=== PATIENT | female | born 1940 | race Caucasian/White ===

== ENCOUNTER → 2021-05-08 12:00 | Outpatient (CLI) | payer MEDICARE, OTHER, SELFPAY ==
--- NOTE | ~2021-05-08 | MM_ITS ---
EXAMINATION: MM screening moo BI w jamar HISTORY: Screening mammogram TECHNIQUE: Craniocaudal and mediolateral oblique 3-D tomosynthesis images were obtained and synthetic 2-D images were generated. Bilateral rotated lateral CC views. CAD analysis was submitted and interp reted. COMPARISON: 05/08/2011 bilateral diagnostic mammogram 06/24/2009 bilateral digital screening mammogram BREAST PARENCHYMAL COMPOSITION: There are scattered areas of fibroglandular density. FINDINGS: There are scattered bilateral benign calcifications. There is no evidence of suspicious ma ss, calcification, or architectural distortion to suggest malignancy in either breast. There has been no suspicious interval change. IMPRESSION: 1. No mammographic evidence of malignancy. 2. Recommend routine screening mammography in one year. BI-RADS Category 2: Benign finding(s). Reviewed, dictated and finalized at location A.
--- NOTE | ~2021-05-08 | DEXA_ITS ---
Bone Density Report Name: Nanette Lee Age: 80 Sex: Female Ethnicity: White Date of : 1940 Indication: osteopenia; parental hip fracture; height loss; postmenopausal Referring Provider: Leonard Cummins Study: Bone densitometry was performed. Exam Date: May 08, 2021 Accession number: [id number] Bone Density: Region BMD T-score Z-score Classification AP Spine (L1-L4) 0.940 -1.0 1.7 Normal Femoral Neck (Left) 0.555 -2.6 -0.4 Osteoporosis Total Hip (Left) 0.706 -1.9 0.1 Osteopenia Femoral Neck (Right) 0.572 -2.5 -0.2 Osteoporosis Total Hip (Right) 0.704 -1.9 0.1 Osteopenia Total Hip Mean 0.705 -1.9 0.1 Osteopenia World Health Organization criteria for BMD impression classify patients as: Normal (T-score at or above -1.0), Osteopenia (T-score between -1.0 and -2.5), or Osteoporosis (T-score at or below -2.5). 10-year Fracture Risk: FRAX not reported because: Some T-score for Spine Total or Hip Total or Femoral Neck at or below -2.5 Previous Exams: Region Exam Age BMD T-score BMD Change BMD Change Date g/cm2 vs Baseline vs Previous AP Spine(L1-L4) 05/08/2021 80 0.940 -1.0 0.051* 0.051* 03/06/2005 64 0.889 -1.4 Total Hip(Left) 05/08/2021 80 0.706 -1.9 -0.084* -0.084* 03/06/2005 64 0.790 -1.2 Total Hip(Right) 05/08/2021 80 0.704 -1.9 -0.080* -0.080* 03/06/2005 64 0.785 -1.3 *Denotes significance at 95% confidence level, LSC for AP Spine = 0.022 g/cm2, LSC for Total Hip = 0.027 g/cm2 Clinical Information Provided by Patient: Parent has had a hip fracture Patient maximum height was 60.0 Menopause Age: 54 Drinks caffeinated beverages Onset of menses at age 14 Number of children 2 Impression: The patient has osteoporosis, based on the Left Femoral Neck T-score. The patient has risk factors, including: parental hip fracture. The BMD for the Total Hip(Left) decreased, changing by -0.084 since the last DXA exam. The BMD for the Total Hip(Right) decreased, changing by -0.080 since the last DXA exam. Discussion: INCREASED RISK OF FRACTURE. BONE DENSITY IS UNDESIRABLY LOW AT ONE OR MORE SKELETAL SITES, CONSISTENT WITH POSTMENOPAUSAL OSTEOPOROSIS. This patient's lowest T-score meets the World Health Organization's (WHO) criteria for osteoporosis at one or more sites (T-score -2.5 or below). In untreated patients, the risk of osteoporotic fracture increases approximately two-fold for each
== END ==
PROVIDERS: PCP Nurse Practitioner; Visit Provider Internal Medicine
DX: Z12.31 Encounter for screening mammogram for malignant neoplasm of breast (principal); Z78.0 Asymptomatic menopausal state; M81.0 Age-related osteoporosis without current pathological fracture; M85.852 Other specified disorders of bone density and structure, left thigh; M85.851 Other specified disorders of bone density and structure, right thigh
CPT/HCPCS: 77063; 77067; 77080

== ENCOUNTER 2023-02-09 12:17 | Emergency (ER) | payer MEDICARE, OTHER, SELFPAY ==
--- NOTE | ~2023-02-09 | XR_ITS ---
EXAMINATION: XR lumbar spine 2-3V DATE: 02/09/2023 13:02 INDICATION: Low back pain TECHNIQUE: Anteroposterior and lateral views of the lumbar spine, and cone-down lateral view of the l umbosacral junction were obtained. COMPARISON: None. FINDINGS: There are 2 mm of retrolisthesis of L5 on S1. The vertebral body heights are normal. There is moderate loss of intervertebral disc space height at L3-4 and L5-S1. Calcified atherosclerosis is noted. There is moderate to severe facet joint osteoarthritis. Small degenerative osteophytes project from the anterior endplates of multiple vertebral bodies. IMPRESSION: 1. Moderate lumbar spondylosis without acute findings. Reviewed, dictated and finalized at location A.
[2023-02-09 12:22] VITALS: BP 146/57; PULSE 63; RESP 18; TEMP 37; O2SAT 99
--- NOTE | 2023-02-09 13:29 | ED.GENADULT ---
HPI - General Adult General Chief complaint: Extremity Problem,Nontraumatic Stated complaint: right leg pain Time Seen by Provider: 02/09/23 12:37 History of Present Illness HPI narrative: 82-year-old female history of CAD, A-fib, osteoporosis and dyslipidemia presents to the emergency room for evaluation of lower back pain radiates into her right leg. States pain is worse when attempting to ambulate and reposition herself. States pain is improved when she hunches forward. Describes pain as a sharp radiating pain into her thigh and into her heel. Denies any injury or trauma. Denies any saddle anesthesia, or difficulties with bowel or bladder habits. Related Data Home Medications Medication Instructions Recorded Confirmed aspirin 81 mg tablet,delayed 81 mg PO DAILY 11/09/20 12/24/22 release (Adult Aspirin Regimen) rivaroxaban 20 mg tablet (Xarelto) 20 mg PO QPM 11/09/20 12/24/22 cholecalciferol (vitamin D3) 50 50 mcg PO DAILY 09/20/22 12/24/22 mcg (2,000 unit) capsule omega-3 fatty acids-fish oil 435 2 cap PO DAILY 09/20/22 12/24/22 mg-880 mg capsule sotalol 80 mg tablet 80 mg PO DAILY 12/24/22 12/24/22 Allergies Allergy/AdvReac Type Severity Reaction Status Date / Time lisinopril Allergy Severe ANGIOEDEMA Verified 02/09/23 12:24 Review of Systems Review of Systems: CONSTITUTIONAL: Denies fever, chills, or sweats. EYES: Denies visual changes, redness, or discharge. ENT: Denies rhinorrhea, congestion, sore throat, or otalgia. CARDIOVASCULAR: Denies chest pain, palpitations, or edema. RESPIRATORY: Denies cough or dyspnea. GASTROINTESTINAL: Denies abdominal pain, nausea, vomiting, or diarrhea. GENITOURINARY: Denies dysuria or hematuria. SKIN: Denies rash or itching. MUSCULOSKELETAL: Reports lower back pain NEUROLOGIC: Denies headache, numbness, dizziness, or weakness. PSYCHIATRIC: Denies anxiety or depression. [facility] Past Medical History Medical History Adult hypothyroidism Atrial fibrillation Coronary artery disease Dyslipidemia Essential (primary) hypertension Hyperlipidemia Mitral regurgitation Osteoporosis Surgical History Surgical History H/O heart artery stent Stented coronary artery Family History Family History Mother Hypertension Hyperlipidemia Father Heart disease Sibling Alzheimer disease Social History Social History Smoking status: Never smoker Second hand tobacco smoke exposure: No Alcohol intake: never Substance use: never Substance use type: does not use Lack of Transportation: No Lack of Food: Never True Current Housing: I Have Housing Concerned About Future Housing: No Difficulty Paying Gas/Electric Bills: No Difficulty Paying for Meds: No Currently Unemployed: No Education: Trade/Vocational Certificate Difficulty w/ Childcare or Family Care: No Exam Narrative: GENERAL: Well-appearing, well-nourished, no physical limitations, and in no acute distress. HEAD: Normocephalic, atraumatic. EYES: Conjunctivae normal, PERRLA and EOMI. CHEST: Clear to auscultation. No respiratory distress. No wheezes rales or rhonchi. HEART: Regular rate and rhythm. No murmur heard. Normal peripheral pulses. BACK: No midline lumbar tenderness, step-offs, bony abnormality; FROM EXTREMITIES: Normal range of motion. No edema. No clubbing or cyanosis. +SLE RLE SKIN: Warm, dry, no rash. No noted wounds NEURO: No focal deficits. Alert and oriented x3. MAEW. CN's II-XI intact bilaterally, antalgic gait PSYCH: Cooperative. Normal mood and affect. Course Vital Signs Vital signs: Vital Signs Temperature 37.0 C 02/09/23 12:22 Pulse Rate 63 02/09/23 12:22 Respiratory Rate 18 02/09/23 12:22 Blood Pressure
== END 2023-02-09 14:17 | disposition home or self-care (01) ==
PROVIDERS: Emergency Provider Nurse Practitioner Family; PCP Internal Medicine
DX: M54.50 Low back pain, unspecified (principal); M79.661 Pain in right lower leg; I25.10 Atherosclerotic heart disease of native coronary artery without angina pectoris; I48.91 Unspecified atrial fibrillation; E78.5 Hyperlipidemia, unspecified; I10 Essential (primary) hypertension
CPT/HCPCS: 72100; 99283

== ENCOUNTER 2023-08-09 01:15 | Day surgery (SDC) | payer MEDICARE, OTHER, SELFPAY ==
[2023-08-01 14:57] VITALS: BMI 24.6
[2023-08-09 10:14] VITALS: BP 144/44; PULSE 51; RESP 18; TEMP 36.4; O2SAT 98; BMI 24.1
[2023-08-09] MEDS: LACTATED RINGERS 1,000 ML 150 ML IV CONT (10:45)
--- NOTE | 2023-08-09 10:51 | PM.HPGS ---
History of Present Illness History of Present Illness Consent: Risks, benefits, and alternatives have been discussed and questions answered. Patient agrees to proceed with procedure. Chief complaint: occult blood in stool Narrative: Nanette Lee is a 82 year old female Presents for screening colonoscopy. Patient has never had prior colonoscopy. Had a Cologuard test several years ago that was negative. Recently found to have mild normochromic normocytic anemia. Stool Hemoccult was performed and found to be positive. Patient referred today for colonoscopy. Patient denies any obvious bleeding. She denies abdominal pain. She reports her bowel habits are normal. Review of Systems Review of Systems: Review of systems noncontributory. [facility] Past Medical History Medical History Adult hypothyroidism Atrial fibrillation Coronary artery disease Dyslipidemia Essential (primary) hypertension Hyperlipidemia Mitral regurgitation Osteoporosis Surgical History Surgical History H/O heart artery stent Stented coronary artery Family History Family History Mother Hypertension Hyperlipidemia Father Heart disease Sibling Alzheimer disease Social History Social History Smoking status: Never smoker Second hand tobacco smoke exposure: No Alcohol intake: current Substance use: never Substance use type: does not use Lack of Transportation: No Lack of Food: Never True Current Housing: I Have Housing Concerned About Future Housing: No Difficulty Paying Gas/Electric Bills: No Difficulty Paying for Meds: No Currently Unemployed: No Education: High School Diploma/GED Difficulty w/ Childcare or Family Care: No Living arrangements: with family Spiritual care concerns: No Meds Home Medications and Allergies Home Medications Medication Instructions Recorded Confirmed Type aspirin 81 mg tablet,delayed 81 mg PO DAILY 11/09/20 08/01/23 History release (Adult Aspirin Regimen) rivaroxaban 20 mg tablet (Xarelto) 20 mg PO QAM 11/09/20 08/01/23 History cholecalciferol (vitamin D3) 50 50 mcg PO DAILY 09/20/22 08/01/23 History mcg (2,000 unit) capsule omega-3 fatty acids-fish oil 435 1 cap PO BID 09/20/22 08/01/23 History mg-880 mg capsule sotalol 80 mg tablet 80 mg PO DAILY 12/24/22 08/01/23 History hydrochlorothiazide 25 mg tablet 25 mg PO DAILY #90 tabs 01/04/23 08/01/23 Rx sodium,potassium,mag sulfates 17.5 See Rx Instructions PO .COMPLEX 07/11/23 Rx gram-3.13 gram-1.6 gram oral soln #354 mL (Suprep Bowel Prep Kit) acetaminophen 500 mg capsule 1,000 mg PO DAILY 08/01/23 08/01/23 History esomeprazole magnesium 40 mg 40 mg PO DAILY 08/01/23 08/01/23 History capsule,delayed release ferrous sulfate 325 mg (65 mg 325 mg PO DAILY 08/01/23 08/01/23 History iron) tablet levothyroxine 50 mcg tablet 50 mcg PO QPM 08/01/23 08/01/23 History ezwxaakj-ngx-kplcx ac 400 1 tablet PO DAILY 08/01/23 08/01/23 History mcg-calcium carb 500 mg-vit K1 20 mcg tablet simvastatin 40 mg tablet 40 mg PO QPM 08/01/23 08/01/23 History alprazolam 0.5 mg tablet 0.5 mg PO BID anxiety #60 tabs 08/02/23 Rx nitrofurantoin 100 mg PO Q12H 5 days #10 caps 08/08/23 Rx monohydrate/macrocrystals 100 mg capsule phenazopyridine 200 mg tablet 200 mg PO TID PRN pain 6 doses #6 08/08/23 Rx (Pyridium) tabs Allergies Allergy/AdvReac Type Severity Reaction Status Date / Time lisinopril Allergy Severe ANGIOEDEMA Verified 08/07/23 11:20 Vital Signs Vital Signs - 24 hr 08/09/23 10:14 Temperature 97.6 F Pulse Rate 51 L Respiratory Rate 18 Blood Pressure 144/44 H Pulse Oximetry 98 Oxygen Delivery Room Air Exam Narrative:
--- NOTE | 2023-08-09 11:01 | WPDANESEPPF ---
Anes - Initial Pre Proc Eval Procedure: Operation Date: 08/09/23 11:30 Proposed Procedures p Colonoscopy - Jaziel Alvarez MD Date/Time: 08/09/23 11:01 Surgeon: Jaziel Alvarez MD Pre Op Diagnosis: occult blood in stool Patient Data Age: 82 Gender: F Height: 1.52 m Weight: 56.1 kg Last Vital Signs Temp 97.6 F 08/09/23 10:14 Pulse 51 L 08/09/23 10:14 Resp 18 08/09/23 10:14 BP 144/44 H 08/09/23 10:14 Pulse Ox 98 08/09/23 10:14 O2 Del Method Room Air 08/09/23 10:14 Allergies Allergy/AdvReac Type Severity Reaction Status Date / Time lisinopril Allergy Severe ANGIOEDEMA Verified 08/07/23 11:20 Home Medications Medication Instructions Recorded Confirmed Type aspirin 81 mg tablet,delayed 81 mg PO DAILY 11/09/20 08/01/23 History release (Adult Aspirin Regimen) rivaroxaban 20 mg tablet (Xarelto) 20 mg PO QAM 11/09/20 08/01/23 History cholecalciferol (vitamin D3) 50 50 mcg PO DAILY 09/20/22 08/01/23 History mcg (2,000 unit) capsule omega-3 fatty acids-fish oil 435 1 cap PO BID 09/20/22 08/01/23 History mg-880 mg capsule sotalol 80 mg tablet 80 mg PO DAILY 12/24/22 08/01/23 History hydrochlorothiazide 25 mg tablet 25 mg PO DAILY #90 tabs 01/04/23 08/01/23 Rx sodium,potassium,mag sulfates 17.5 See Rx Instructions PO .COMPLEX 07/11/23 Rx gram-3.13 gram-1.6 gram oral soln #354 mL (Suprep Bowel Prep Kit) acetaminophen 500 mg capsule 1,000 mg PO DAILY 08/01/23 08/01/23 History esomeprazole magnesium 40 mg 40 mg PO DAILY 08/01/23 08/01/23 History capsule,delayed release ferrous sulfate 325 mg (65 mg 325 mg PO DAILY 08/01/23 08/01/23 History iron) tablet levothyroxine 50 mcg tablet 50 mcg PO QPM 08/01/23 08/01/23 History wnffnbzb-cte-sgknk ac 400 1 tablet PO DAILY 08/01/23 08/01/23 History mcg-calcium carb 500 mg-vit K1 20 mcg tablet simvastatin 40 mg tablet 40 mg PO QPM 08/01/23 08/01/23 History alprazolam 0.5 mg tablet 0.5 mg PO BID anxiety #60 tabs 08/02/23 Rx nitrofurantoin 100 mg PO Q12H 5 days #10 caps 08/08/23 Rx monohydrate/macrocrystals 100 mg capsule phenazopyridine 200 mg tablet 200 mg PO TID PRN pain 6 doses #6 08/08/23 Rx (Pyridium) tabs Patient hx anesthesia problems: none Family hx anesthesia problems: none Results Review: All pre-operative results and documents have been reviewed as part of the pre-operative evaluation. [facility] Past Medical History Medical History Adult hypothyroidism Atrial fibrillation Coronary artery disease Dyslipidemia Essential (primary) hypertension Hyperlipidemia Mitral regurgitation Osteoporosis Surgical History Surgical History H/O heart artery stent Stented coronary artery Family History Family History Mother Hypertension Hyperlipidemia Father Heart disease Sibling Alzheimer disease Social History Social History Smoking status: Never smoker Second hand tobacco smoke exposure: No Alcohol intake: current Substance use: never Substance use type: does not use Lack of Transportation: No Lack of Food: Never True Current Housing: I Have Housing Concerned About Future Housing: No Difficulty Paying Gas/Electric Bills: No Difficulty Paying for Meds: No Currently Unemployed: No Education: High School Diploma/GED Difficulty w/ Childcare or Family Care: No Living arrangements: with family Spiritual care concerns: No Anes - Eval Final PreProcedure Day of Procedure 08/09/23 11:01 Patient weight: normal Heart: regular rate and rhythm Lungs: clear to auscultation Airway: Mallampati scale class II Neurological: alert and oriented Last oral intake: >/= 8 hours ASA classification: III Emergent: no Anes
[2023-08-09 11:57] VITALS: BP 110/34; PULSE 58; RESP 19; O2SAT 98
[2023-08-09 12:07] VITALS: BP 154/57; PULSE 67; RESP 23; O2SAT 98
[2023-08-09 12:17] VITALS: BP 147/64; PULSE 55; RESP 19; O2SAT 100
== END 2023-08-09 12:27 | disposition home or self-care (01) ==
PROVIDERS: PCP Family Medicine; Visit Provider Internal Medicine Gastroenterology
PROC: 0DJD8ZZ Inspection of Lower Intestinal Tract, Via Natural or Artificial Opening Endoscopic (ICD-10-PCS; CPT 45378; principal; 2023-08-09 11:30)
DX: Z12.11 Encounter for screening for malignant neoplasm of colon (principal); R19.5 Other fecal abnormalities; K64.8 Other hemorrhoids; K57.30 Diverticulosis of large intestine without perforation or abscess without bleeding; D64.9 Anemia, unspecified; I48.91 Unspecified atrial fibrillation; I25.10 Atherosclerotic heart disease of native coronary artery without angina pectoris; I10 Essential (primary) hypertension; E78.5 Hyperlipidemia, unspecified; E03.9 Hypothyroidism, unspecified; M81.0 Age-related osteoporosis without current pathological fracture; I34.0 Nonrheumatic mitral (valve) insufficiency; Z95.5 Presence of coronary angioplasty implant and graft; Z79.82 Long term (current) use of aspirin; Z79.01 Long term (current) use of anticoagulants
CPT/HCPCS: G0121; J2704; J7120

== ENCOUNTER → 2023-10-05 08:01 | Outpatient (CLI) | payer MEDICARE, OTHER, SELFPAY ==
--- NOTE | ~2023-10-05 | MR_ITS ---
EXAMINATION: MR lumbar spine wo con DATE: 10/05/2023 09:16 INDICATION: Bilateral upper leg pain. TECHNIQUE: Magnetic resonance imaging (MRI) of the lumbar spine was performed without intravenous con trast. Sequences included sagittal T2-weighted FSE, sagittal T2-weighted FS FSE, sagittal T1-weighted FSE, and axial T2-weighted FSE. COMPARISON: Lumbar spine radiographs 02/09/2023 FINDINGS: There is 9 degrees levocurvature of lumbar spine. There is mild chronic anterior wedging of T11 vertebral body. There is moderately decreased disc height at L3-L4 and severely decreased disc h eight at L5-S1. The distal spinal cord signal intensity is normal. The conus medullaris is at L1. The following disc levels are specifically discussed: L1-L2: The disc is mildly bulging. There is mild bilateral facet joint osteoarthritis. There is mild bilateral neural foraminal stenosis. There is no central canal stenosis. L2-L3: The disc is mildly bulging. There is moderate right and mild left facet joint osteoarthritis. There is mild bilateral neural foraminal stenosis. There is no central canal stenosis. L3-L4: The disc is bulging and has an annular fissure. There is severe right and moderate left facet joint osteoarthritis. There is moderate right and mild left neural foraminal stenosis. There is mild central canal stenosis. There is severe stenosis of right lateral recess. L4-L5: The disc is bulging. There is severe bilateral facet joint osteoarthritis. There is moderate b ilateral neural foraminal stenosis. There is moderate central canal stenosis. There is severe stenosi s of left lateral recess. L5-S1: The disc is bulging and has an annular fissure. There is moderate severe left facet joint oste oarthritis. There is mild right and moderate left neural foraminal stenosis. There is mild central ca nal stenosis. IMPRESSION: 1. Severe lumbar spondylosis. Reviewed, dictated and finalized at location A. [employer]
== END ==
PROVIDERS: PCP Family Medicine; Visit Provider Orthopaedic Surgery
DX: M47.896 Other spondylosis, lumbar region (principal)
CPT/HCPCS: 72148

== ENCOUNTER 2024-03-10 12:57 | Outpatient (CLI) | payer MEDICARE, OTHER, SELFPAY ==
--- NOTE | ~2024-03-10 | DEXA_ITS ---
Bone Density Report Name: JARROD MATAMOROS Age: 83 Sex: Female Ethnicity: White Date of : 1940 Indication: osteopenia; parental hip fracture; height loss; history of glucocorticoids; Referring Provider: ANGEL PITTMAN Study: Bone densitometry was performed. Exam Date: March 10, 2024 Accession number: [id number] Bone Density: Region BMD T-score Z-score Classification AP Spine (L1-L4) 0.936 -1.0 1.8 Normal Femoral Neck (Left) 0.564 -2.6 -0.2 Osteoporosis Total Hip (Left) 0.718 -1.8 0.4 Osteopenia Femoral Neck (Right) 0.580 -2.4 0.0 Osteopenia Total Hip (Right) 0.677 -2.2 0.0 Osteopenia Total Hip Mean 0.698 -2.0 0.2 Osteopenia World Health Organization criteria for BMD impression classify patients as: Normal (T-score at or above -1.0), Osteopenia (T-score between -1.0 and -2.5), or Osteoporosis (T-score at or below -2.5). 10-year Fracture Risk: FRAX not reported because: Some T-score for Spine Total or Hip Total or Femoral Neck at or below -2.5 Previous Exams: Region Exam Age BMD T-score BMD Change BMD Change Date g/cm2 vs Baseline vs Previous AP Spine(L1-L4) 03/10/2024 83 0.936 -1.0 0.048* -0.003 05/08/2021 80 0.940 -1.0 0.051* 0.051* 03/06/2005 64 0.889 -1.4 Total Hip(Left) 03/10/2024 83 0.718 -1.8 -0.072* 0.012 05/08/2021 80 0.706 -1.9 -0.084* -0.084* 03/06/2005 64 0.790 -1.2 Total Hip(Right) 03/10/2024 83 0.677 -2.2 -0.107* -0.027* 05/08/2021 80 0.704 -1.9 -0.080* -0.080* 03/06/2005 64 0.785 -1.3 *Denotes significance at 95% confidence level, LSC for AP Spine = 0.022 g/cm2, LSC for Total Hip = 0.027 g/cm2 Clinical Information Provided by Patient: Parent has had a hip fracture Has taken Glucocorticoids Has used the following medications: Calcium, MTV Patient maximum height was 60.0 Menopause Age: 54 No regular weight bearing exercise Drinks caffeinated beverages Onset of menses at age 14 Number of children 2 Impression: The patient has osteoporosis, based on the Left Femoral Neck T-score. The patient has risk factors, including: parental hip fracture, history of glucocorticoid therapy. The BMD for the Total Hip(Right) decreased, changing by -0.027 since the last DXA exam. Discussion: INCREASED RISK OF FRACTURE. BONE DENSITY IS UNDESIRABLY LOW AT ONE OR MORE SKELETAL SITES, CONSISTENT WITH POSTMENO
== END 2024-03-10 12:58 ==
LOC: MICIMG 12:58
PROVIDERS: PCP Family Medicine; Visit Provider Family Medicine
DX: M81.0 Age-related osteoporosis without current pathological fracture (principal); M85.852 Other specified disorders of bone density and structure, left thigh; M85.851 Other specified disorders of bone density and structure, right thigh
CPT/HCPCS: 77080

== ENCOUNTER 2024-06-23 07:09 | Day surgery (SDC) | payer MEDICARE, OTHER, SELFPAY ==
[2024-06-08 11:19] VITALS: BMI 25.0
--- NOTE | ~2024-06-23 | XR_ITS ---
EXAMINATION: XR fluoroscopy no charge DATE: 06/23/2024 9:35 CDT INDICATION: OLLIE L4-5,L5-S1 TRANSFORAMINAL EPD STEROID INJ . TECHNIQUE: 8 fluoroscopic images of the lumbar spine were obtained during bilateral L4-5 and L5-S1 tr ansforaminal epidural steroid injection, performed by Billy Bautista MD. I was not present during t he procedure. Fluoroscopy exposure time was 22.8 seconds. Air Kerma 5.99 mGy. COMPARISON: None FINDINGS/IMPRESSION: Fluoroscopic documentation of bilateral L4-5 and L5-S1 transforaminal epidural steroid injection. Ple ase refer to the operative note for complete procedural details . Reviewed, dictated and finalized at location K. ADDENDUM: 06/23/24 1510 6 cine clips are also included with this examination.
--- NOTE | 2024-06-23 05:47 | WPDHPUPDATE1 ---
History and Physical Update Update Date/Time: 06/23/24 05:47 History and Physical has been reviewed, including an updated exam of the patient. There are NO changes in the patient's condition. Risks, benefits, and alternatives have been discussed and questions answered. Patient agrees to proceed with procedure.
--- NOTE | 2024-06-23 05:48 | W.PM.PROC2 ---
Procedure Note - Detailed Date of Procedure 06/23/24 Pre-op Diagnosis Lumbosacral Radiculopathy, Lumbar spinal stenosis with neurogenic claudication Post-op Diagnosis Same Procedure Performed Bilateral L4-5, L5-S1 transforaminal epidural steroid injection under fluoroscopic guidance with contrast control ( 4 levels treated). Surgeon Blily Bautista MD Anesthesia Local Description of Procedure INFORMED CONSENT: Risks, benefits and alternatives to the procedure were discussed in detail with the patient who expressed explicit understanding and consent to proceed. Patient was informed verbally and in written form regarding the risks associated with the procedure including the low risk of serious infection, bleeding/bruising, allergic reaction, nerve or organ injury, paralysis, procedural site pain or discomfort, worsening pain and/or mobility, failure to treat and/or disfigurement. The patient expressed explicit understanding and consent to proceed. All materials required for the procedure were available prior to procedure start. Site and side was marked prior to procedure and confirmed in the presence of the patient. PROCEDURE IN DETAIL: The patient was brought to the procedural suite and placed in the prone position. Patient was made comfortable with use of pillows under the head/chest, hips and ankles. Skin overlying the injection site was prepared broadly with ChloraPrep applicator and draped in a sterile manner. Aseptic technique was employed throughout. The endplates of the vertebral body at the site of interest were aligned in the AP view. Ipsilateral oblique angulation was utilized to better visualize the neuroforamen of interest. Local anesthesia was established by infiltration with approximately 5 mL of 2% lidocaine via a 1-1/2 inch 27-gauge needle. A 22-gauge 3.5 inch Bola (pencil point) spinal needle was advanced until the needle approached the 6 o'clock position on the pedicle just superior to the exiting nerve root. on the right at L4-5. Lateral view was utilized to confirm appropriate position of the needle tip within the superior and posterior portion of the respective foramen. In an AP view, 1 mL of Omnipaque 300 contrast medium was injected after negative aspiration for CSF, blood or other bodily fluid, showing appropriate neurogram without evidence of intravascular or intrathecal spread of contrast. Digital subtraction imaging was used with an additional 1ml of the same contrast medium to confirm absence of intravascular contrast spread. A 1mL solution containing 3 mg of betamethasone was injected after negative repeat aspiration. Appropriate spread of the injectate was confirmed with washout of previously injected contrast. No parasthesias were elicited. Needle was removed completely intact without difficulty. The same exact procedure was repeated for all remaining levels on the ipsilateral side, right L5-S1 neuroforamen, modified as necessary to accommodate for the new target location with identical findings and results and no evidence of complication. the same exact procedure was then repeated for all remaining levels on the contralateral side, left L4-5, L5-S1 neural foramen, modified as necessary to accommodate for the new target location on the contralateral side with identical findings and results with no evidence of complication. Images were saved and documented in the patient chart. Patient's skin was cleaned and sterile bandage applied. The patient tolerated the procedure well. The patient was transported to the recovery area in stable condition where they were observed for an appropriate amount of time prior to discharge, without evidence of complication. The patient was instructed to avoid excessive activity for the next 48 hours, including climbing and frequent use of stairs. Showers only for 48 hours. They were instructed not to drive or operate heavy machinery for 24 hours. They are to monitor for severe headaches, fevers, chil
[2024-06-23 08:00] VITALS: BP 174/56; PULSE 55; RESP 20; TEMP 36.6; O2SAT 100; BMI 19.8
[2024-06-23 09:45] VITALS: BP 185/84; PULSE 63; RESP 20; O2SAT 95
[2024-06-23] MEDS: BETAMETHASONE SODIUM PHOSPHATE PF INJ 6 MG/ML VIAL 12 MG INFILTRATE (09:50)
[2024-06-23] MEDS: LIDOCAINE HCL 2% PF INJ 5 ML VIAL 2 ML INFILTRATE (09:50)
[2024-06-23 09:51] VITALS: BP 193/86; PULSE 68; RESP 22; O2SAT 96
[2024-06-23] MEDS: LIDOCAINE HCL 1% PF INJ 5 ML VIAL 3 ML INFILTRATE (09:54)
[2024-06-23 10:00] VITALS: BP 168/61; PULSE 54; RESP 20; O2SAT 99
--- NOTE | 2024-06-23 10:22 | SUR.PHASEII ---
1022 feet feel heavy hard to walk, good sensation. family to room. awaiting dr stover to be made aware
--- NOTE | 2024-06-23 10:28 | SUR.PHASEII ---
dr stover says 4 nerves blocked and heaviness expected. pt d/c
== END 2024-06-23 10:30 | disposition home or self-care (01) ==
PROVIDERS: PCP Family Medicine; Visit Provider Anesthesiology Pain Medicine
PROC: (CPT 64483; principal; 2024-06-23 08:45)
DX: M54.17 Radiculopathy, lumbosacral region (principal); M48.062 Spinal stenosis, lumbar region with neurogenic claudication
CPT/HCPCS: 64483 ×2; 99199

== ENCOUNTER 2024-07-29 10:11 | Outpatient (CLI) | payer MEDICARE, OTHER, SELFPAY ==
[2024-07-29 10:52] LABS: Hematocrit 35.9 % (37.0-47.0); Hemoglobin 12.7 g/dL (12.0-15.0)
[2024-07-29 11:10] LABS: Anion Gap 9 mmol/L (4-12); Blood Urea Nitrogen 12 mg/dL (7-17); Calcium 9.4 mg/dL (8.4-10.2); Carbon Dioxide 31 mmol/L (22-30); Chloride 100 mmol/L (98-107); Estimated Glomerular Filt Rate > 60; Glucose 105 mg/dL (65-110); Potassium 3.4 mmol/L (3.4-5.0); Sodium 140 mmol/L (137-145)
== END 2024-07-29 10:12 | disposition home or self-care (01) ==
PROVIDERS: Anesthesiology; PCP Family Medicine; Visit Provider Anesthesiology Pain Medicine
DX: D64.9 Anemia, unspecified (principal); Z79.899 Other long term (current) drug therapy
CPT/HCPCS: 36415; 80048; 85014; 85018

== ENCOUNTER 2024-08-03 02:31 | Day surgery (SDC) | payer MEDICARE, OTHER, SELFPAY ==
--- NOTE | 2024-07-27 15:01 | PC.NURSE ---
Report to the Outpatient Waiting Room, entrance under the green pavilion located off [facility], at time _8:30 AM on date 08/03/24 . Planned Procedure Time: 10:30 AM .? Time changes happen often and if your time is changed the preop area will call you the afternoon before. - You and your visitor will be asked to self-screen and do not enter if you have any COVID symptoms. Please call surgeon if you need to reschedule. - A mask is optional within the hospital at this time. NOTHING TO EAT OR DRINK AFTER MIDNIGHT Take only the following medications with a SIP of water on the morning of surgery: _ALPRAZOLAM,_SOTALOL DO NOT STOP ANY OF YOUR OTHER PRESCRIPTION MEDICATIONS PRIOR TO SURGERY EXCEPT THE FOLLOWING Medications to discontinue per physician PT STATES HOLD ASPIRIN AND XARELTO 3 DAYS PRE OP PER DR CHATMAN.LAST DOSE 07/31/24. HOLD ALL VITAMINS AND SUPPLEMENTS 3 DAYS PRE OP .LAST DOSE 07/31/24 Please no make-up, nail malay, hairspray, perfume, deodorant, or body powder the day of surgery.? No jewelry (including any body piercings) or valuables the day of surgery, leave them at home.? Please take a shower or bath the night before, AND the morning of, surgery with an antibacterial soap.? Wear comfortable, loose fitting clothing.? Children are encouraged to wear pajamas. - Jewelry must be removed prior to entering the operating room.? Rings and piercings that are not removed may be cut off. - The hospital will not accept responsibility for valuables.? - Please leave all valuables, including medications, at home the day of surgery. If you are going home after surgery, a licensed pedicab driver must drive you home.? - NO public transportation without another adult if you receive anesthesia. - We recommend that an adult stay with you for 24 hours following discharge. - We also recommend that you do not drive, make important decision, drink alcoholic beverages, or take any drugs that were not prescribed by your health care provider for at least 24 hours after your discharge time. For Pediatric surgeries, we recommend two adults accompany the child home. Follow any additional instructions given to you from your surgeon. Telephone instructions given to _PATIENT and asked if any additional questions and then verbalized understanding. Patient advised to call surgeon office or pre surgery nurse liaison [phone] if any additional questions.
[2024-07-27 15:10] VITALS: BMI 25.0
[2024-08-03] VITALS (8 sets, daily range): BP systolic 106–160; BP diastolic 48–124; PULSE 51–57; RESP 14–19; TEMP 36.1; O2SAT 99–100
--- NOTE | ~2024-08-03 | XR_ITS ---
EXAMINATION: XR fluoroscopy no charge DATE: 08/03/2024 11:19 INDICATION: Bilateral L3-L4 and L4-L5 minimally invasive lumbar decompression TECHNIQUE: 16 fluoroscopic images of the lumbar spine were obtained during procedure performed by Dr. Bautista. Radiologist was not present for the imaging or procedure. The amount of fluoroscopy time used during this procedure was 3.8 minutes. COMPARISON: None. FINDINGS/IMPRESSION: Images demonstrate a rongeur advanced through a trochar at the bilateral L3-L4 and L4-L5 interlaminar spaces for posterior decompression. See procedure note for further detail. Reviewed, dictated and finalized at location B.
[2024-08-03] MEDS: LACTATED RINGERS 1,000 ML 30 ML IV CONT (09:00)
--- NOTE | 2024-08-03 10:06 | WPDANESEPPF ---
Anes - Initial Pre Proc Eval Procedure: Operation Date: 08/03/24 10:30 Proposed Procedures p Bilateral L3-4, L4-5 Minimally Invasive Lumbar Decompression Under Fluoroscopic Guidance, Possible Epidurogram - Billy Bautista MD Date/Time: 08/03/24 10:06 Surgeon: Billy Bautista MD Pre Op Diagnosis: lumbar stenosis w/neurogenic claudication Patient Data Age: 83 Gender: F Height: 1.52 m Weight: 58.9 kg Last Vital Signs Temp 36.1 C L 08/03/24 09:00 Pulse 54 L 08/03/24 09:00 Resp 16 08/03/24 09:00 BP 137/50 L 08/03/24 09:00 Pulse Ox 99 08/03/24 09:00 O2 Del Method Room Air 08/03/24 09:00 Allergies Allergy/AdvReac Type Severity Reaction Status Date / Time lisinopril Allergy Severe ANGIOEDEMA Verified 08/03/24 09:40 Home Medications Medication Instructions Recorded Confirmed Type aspirin 81 mg tablet,delayed 81 mg PO DAILY 11/09/20 08/03/24 History release (Adult Aspirin Regimen) rivaroxaban 20 mg tablet (Xarelto) 20 mg PO QAM 11/09/20 07/27/24 History omega-3 fatty acids-fish oil 435 1 cap PO BID 09/20/22 08/03/24 History mg-880 mg capsule sotalol 80 mg tablet 80 mg PO DAILY 12/24/22 08/03/24 History ferrous sulfate 325 mg (65 mg 325 mg PO DAILY 08/01/23 07/27/24 History iron) tablet mnslgazg-gxy-piayh ac 400 1 tablet PO DAILY 08/01/23 08/03/24 History mcg-calcium carb 500 mg-vit K1 20 mcg tablet levothyroxine 50 mcg tablet 50 mcg PO QPM #90 tabs 01/06/24 07/27/24 Rx hydrochlorothiazide 25 mg tablet 12.5 mg PO DAILY #90 tabs 01/31/24 07/27/24 Rx simvastatin 40 mg tablet 40 mg PO QPM #90 tabs 04/14/24 07/27/24 Rx esomeprazole magnesium 40 mg 40 mg PO DAILY 06/08/24 07/27/24 History capsule,delayed release turmeric 400 mg capsule 400 mg PO DAILY 06/08/24 07/27/24 History alprazolam 0.5 mg tablet 0.5 mg PO BID anxiety #60 tabs 07/03/24 08/03/24 Rx Patient hx anesthesia problems: none Family hx anesthesia problems: none Results Review: All pre-operative results and documents have been reviewed as part of the pre-operative evaluation. [facility] Past Medical History Medical History Adult hypothyroidism Atrial fibrillation Coronary artery disease Dyslipidemia Essential (primary) hypertension Hyperlipidemia Mitral regurgitation Osteoporosis Surgical History Surgical History H/O heart artery stent Stented coronary artery Family History Family History Mother Hypertension Hyperlipidemia Father Heart disease Sibling Alzheimer disease Social History Social History Smoking status: Never smoker Second hand tobacco smoke exposure: Yes Alcohol intake: never Substance use: never Substance use type: does not use Do You Feel Safe in your Home?: Yes Lack of Transportation: No Lack of Food: Never True Current Housing: I Have Housing Concerned About Future Housing: No Difficulty Paying Gas/Electric Bills: No Difficulty Paying for Meds: No Currently Unemployed: No Education: High School Diploma/GED Difficulty w/ Childcare or Family Care: No Living arrangements: with family Occupation/Education: retired Spiritual care concerns: No Anes - Eval Final PreProcedure Day of Procedure 08/03/24 10:06 Patient weight: normal Heart: regular rate and rhythm Lungs: clear to auscultation Airway: Mallampati scale class II Neurological: alert and oriented Last oral intake: >/= 8 hours ASA classification: III Emergent: no Anesthetic plan: proceed Anesthesia type and monitoring: general ETT and standard monitoring Results Review: All pre-operative results and documents have been reviewed as part of the pre-operative evaluation. Informed Consent: The patient's anesthetic p
--- NOTE | 2024-08-03 10:15 | PM.HPGS ---
History of Present Illness History of Present Illness Consent: Risks, benefits, and alternatives have been discussed and questions answered. Patient agrees to proceed with procedure. Chief complaint: lumbar stenosis w/neurogenic claudication Narrative: Nanette Lee is a 83 year old female with chronic, recalcitrant and disabling bilateral lumbosacral spinal stenosis with ligamentum flavum hypertrophy resulting in intermittent neurogenic claudication secondary to degenerative spondylosis with failure to respond to aggressive conservative measures including PT, oral and topical analgesics, opioid and nonopioid analgesics, rest, time and activity/behavioral modification over the past 1-2 years who presents for minimally invasive lumbar decompression bilaterally at L3-4, L4-5 under fluoroscopic guidance with possible epidurogram. Review of Systems Review of Systems: Patient denies any new infectious, allergic, cardiopulmonary, neurologic or constitutional symptoms or changes in activity tolerance or exercise capacity including new or progressive SOB/CASTILLO, peripheral edema, productive cough, dysuria, nausea/vomiting, diarrhea, weight change, fevers/chills/night sweats, new or progressive neurologic deficit, cognitive or mood changes since last seen, except as documented in the HPI. All systems reviewed & are unremarkable except as noted in HPI and below PMFSH Past Medical History Medical History Adult hypothyroidism Atrial fibrillation Coronary artery disease Dyslipidemia Essential (primary) hypertension Hyperlipidemia Mitral regurgitation Osteoporosis Surgical History Surgical History H/O heart artery stent Stented coronary artery Family History Family History Mother Hypertension Hyperlipidemia Father Heart disease Sibling Alzheimer disease Social History Social History Smoking status: Never smoker Second hand tobacco smoke exposure: Yes Alcohol intake: never Substance use: never Substance use type: does not use Do You Feel Safe in your Home?: Yes Lack of Transportation: No Lack of Food: Never True Current Housing: I Have Housing Concerned About Future Housing: No Difficulty Paying Gas/Electric Bills: No Difficulty Paying for Meds: No Currently Unemployed: No Education: High School Diploma/GED Difficulty w/ Childcare or Family Care: No Living arrangements: with family Occupation/Education: retired Spiritual care concerns: No Meds Home Medications and Allergies Home Medications Medication Instructions Recorded Confirmed Type aspirin 81 mg tablet,delayed 81 mg PO DAILY 11/09/20 08/03/24 History release (Adult Aspirin Regimen) rivaroxaban 20 mg tablet (Xarelto) 20 mg PO QAM 11/09/20 07/27/24 History omega-3 fatty acids-fish oil 435 1 cap PO BID 09/20/22 08/03/24 History mg-880 mg capsule sotalol 80 mg tablet 80 mg PO DAILY 12/24/22 08/03/24 History ferrous sulfate 325 mg (65 mg 325 mg PO DAILY 08/01/23 07/27/24 History iron) tablet javpjmna-lqy-bddxk ac 400 1 tablet PO DAILY 08/01/23 08/03/24 History mcg-calcium carb 500 mg-vit K1 20 mcg tablet levothyroxine 50 mcg tablet 50 mcg PO QPM #90 tabs 01/06/24 07/27/24 Rx hydrochlorothiazide 25 mg tablet 12.5 mg PO DAILY #90 tabs 01/31/24 07/27/24 Rx simvastatin 40 mg tablet 40 mg PO QPM #90 tabs 04/14/24 07/27/24 Rx esomeprazole magnesium 40 mg 40 mg PO DAILY 06/08/24 07/27/24 History capsule,delayed release turmeric 400 mg capsule 400 mg PO DAILY 06/08/24 07/27/24 History alprazolam 0.5 mg tablet 0.5 mg PO BID anxiety #60 tabs 07/03/24 08/03/24 Rx Allergies Allergy/AdvReac Type Severity Reaction Status Date / Time lisinopril Allergy Sever
--- NOTE | 2024-08-03 10:19 | WPDHPUPDATE1 ---
History and Physical Update Update Date/Time: 08/03/24 10:19 History and Physical has been reviewed, including an updated exam of the patient. There are NO changes in the patient's condition. Risks, benefits, and alternatives have been discussed and questions answered. Patient agrees to proceed with procedure.
--- NOTE | 2024-08-03 10:21 | W.PM.PROC2 ---
Procedure Note - Detailed Date of Procedure 08/03/24 Pre-op Diagnosis lumbar stenosis w/neurogenic claudication Post-op Diagnosis Same Procedure Performed Bilateral Minimally Invasive Lumbar Decompression (MILD) at L3-4, L4-5 under Fluoroscopic Guidance. Surgeon Billy Bautista MD Water Mechanic None Anesthesia Other ([Moderate IV sedation/MAC] with local anesthetic infiltration in the prone position) Description of Procedure INFORMED CONSENT: Risks, benefits, and alternatives to the procedure were discussed in detail with the patient who expressed explicit understanding and consent to proceed. Risks discussed with the patient included but were not limited to risk of serious local or systemic infection, bleeding/bruising, epidural hematoma, dural puncture or tear resulting in CSF leak and acute or chronic post-dural puncture headache, scarring/deformity, immediate or delayed allergic reaction, decreased mobility, failure to treat pain, inadvertent neurologic injury resulting in increased pain, weakness/paralysis or numbness, inadvertent organ injury, need for additional surgery, allergic reaction, heart attack, stroke, seizure, coma, . Anesthetic risks were also briefly discussed by myself and the job tracer. The patient expressed understanding and consent to proceed, agreeing that potential benefits outweigh risk of harm. All materials required for the procedure were immediately available prior to procedure start. Site and side were confirmed with the patient, compared carefully to the patient chart and consent, and marked prior to transport to the operating room. Appropriate time out procedure was performed per protocol prior to procedure start. PROCEDURE IN DETAIL: The patient was brought to the operative suite and placed in the supine position. Appropriate ASA standard monitors were attached. Anesthesia was initiated without difficulty or event. Eyes were protected. Patient was transitioned to the prone position. Pressure points were padded with joints in neutral position. When appropriate, breasts and genitals were evaluated and protected. Eyes were checked and were free from undue pressure. Skin overlying the procedure site was marked with sterile marker. Surgical area was prepared in a typical sterile fashion with ChloraPrep and allowed to dry for at least 3 minutes prior to sterilely draping the surgical site. The lumbar spine was identified in the AP fluoroscopic view with slight cephalad tilt perfectly aligning the endplates at the targeted levels with spinous processes bisecting the transpedicular plane. After identifying the intended incision site approximately 1.5 levels inferior to the level of interest, the area was anesthetized by infiltration with no more than 10ml of a 1:1 admixture of 0.5% PF bupivacaine with epinephrine and 2% PF lidocaine with epinepherine via a 27-gauge needle after negative aspiration. A 22-gauge spinal needle was used to provide additional and adequate local anesthesia to the level of the interspinous ligament, ligamentum flavum and the periosteum of the lamina at the intended treatment levels. In the AP view, a #11 scalpel blade was used to create a single stab incision at the intended incision site on the targeted side. The Vertos MILD kit was opened and the included cannula and trocar assembly was advanced through the incision to contact the midportion of the right lamina just adjacent to the spinous process at L5. Once seated, the lateral view was used to gauge depth demonstrating the most anterior tip of the trocar posterior to the epidural space at all times. The solar energy consultant and designer-provided cannula stabilizer was placed over the trocar flush to the patient's lumbar flank. Cannula obturator with handle was removed. Included depth guide was then attached to the insertion port on the cannula and set to an intitial depth of 15 mm. The bone rongeur was advanced to the depth of the lumbar lamina at the targeted level
[2024-08-03] MEDS: ceFAZolin 2 GM/D5W 50 ML 2 GM/50 ML BAG IVPB (10:28)
[2024-08-03] MEDS: LIDOCAINE HCL 1% LOCAL INJ 20 ML VIAL 10 ML INFILTRATE (10:46)
[2024-08-03] MEDS: BUPIVACAINE/EPINEPHRINE 0.5% 50 ML VIAL 10 ML INFILTRATE (10:46)
== END 2024-08-03 13:03 | disposition home or self-care (01) ==
PROVIDERS: PCP Family Medicine; Visit Provider Anesthesiology Pain Medicine
PROC: (CPT 0275T; principal; 2024-08-03 10:30)
DX: M48.062 Spinal stenosis, lumbar region with neurogenic claudication (principal); I10 Essential (primary) hypertension; G89.29 Other chronic pain; E78.5 Hyperlipidemia, unspecified; M81.0 Age-related osteoporosis without current pathological fracture; E03.9 Hypothyroidism, unspecified; I25.10 Atherosclerotic heart disease of native coronary artery without angina pectoris; G89.18 Other acute postprocedural pain; Z79.82 Long term (current) use of aspirin; Z79.01 Long term (current) use of anticoagulants; Z98.890 Other specified postprocedural states; Z95.5 Presence of coronary angioplasty implant and graft; Z86.79 Personal history of other diseases of the circulatory system; Z82.49 Family history of ischemic heart disease and other diseases of the circulatory system; Z00.6 Encounter for examination for normal comparison and control in clinical research program
CPT/HCPCS: 0275T; 99199; C1889; J0330; J0690; J2405; J2704; J7120; Q9965

== ENCOUNTER 2025-03-18 13:38 | Outpatient (CLI) | payer MEDICARE, OTHER, SELFPAY ==
--- NOTE | ~2025-03-18 | XR_ITS ---
XR hip LT min 2V 03/18/2025 14:06 Indication: Left hip pain Procedure: 2 views left hip Comparison: No prior studies for comparison. Findings: No fracture, subluxation or dislocation. No significant soft tissue abnormality. No foreign bodies. Mild osteoarthritis of the left hip. Impression: 1: Mild osteoarthritis of the left hip. Reviewed, dictated and finalized at location A. Impression: 1: Mild osteoarthritis of the left hip.
--- NOTE | ~2025-03-18 | XR_ITS ---
3 VIEWS LUMBAR SPINE Ordering provider: Tamela Sexton APRN History: . M54.30 - Sciatica, unspecified side . Comparison: February 09, 2023 FINDINGS: VERTEBRAL BODIES: No visible fracture or subluxation. Mild levoscoliosis. Degenerative changes of the spine. DISK SPACES: Narrowing of the disc L3-L4, L4-L5 and L5-S1.. Joint disease at the level of L5-S1. SOFT TISSUES: Atherosclerotic changes of the aorta. IMPRESSION: No acute osseous abnormality lumbar spine. Multilevel degenerative disc disease. Reviewed, dictated and finalized at location A.
== END 2025-03-18 13:39 | disposition home or self-care (01) ==
LOC: MICIMG 13:40
PROVIDERS: PCP Nurse Practitioner Family; Visit Provider Nurse Practitioner Family
DX: M51.369 Other intervertebral disc degeneration, lumbar region without mention of lumbar back pain or lower extremity pain (principal); M16.12 Unilateral primary osteoarthritis, left hip
CPT/HCPCS: 72100; 73502

== ENCOUNTER 2025-05-28 08:56 | Emergency (ER) | payer MEDICARE, OTHER, SELFPAY ==
--- NOTE | ~2025-05-28 | XR_ITS ---
CHEST RADIOGRAPH CLINICAL HISTORY: afib rvr . COMPARISON: 10/25/2018 TECHNIQUE: Single portable view of the chest. FINDINGS The cardiomediastinal silhouette is unremarkable. The lungs are clear. IMPRESSION: No focal infiltrate or effusion. Reviewed, dictated and finalized at location A.
[2025-05-28 09:03] VITALS: BP 130/111; PULSE 125; RESP 18; TEMP 36.6; O2SAT 98
--- OUTSIDE RECORDS SUMMARY | 2025-05-28 09:11 | XMS_ITS | Clinical Summary ---
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 Gender Identity Not on file Sexual Orientation Not on file Plan of Treatment Health Maintenance Due Date Last Done Comments DTaP, Tdap and Td Vaccines ( 1 - Tdap) 1960 Pneumococcal Vaccine: 50+ Ye ars (1 of 1 - PCV) 1991 Zoster Vaccines (1 of 2) 1991 Dexa Scan (General) 2006 RSV Immunization or 60+ Years (1 - 1-dose 75+ series) 2016 COVID-19 Vaccine (2023-2 5 season) 2024 Meningococcal B Vaccine Aged Out No l onger eligible based on patient's age to complete this topic Meningococcal Vaccine Aged Out No talia jimena eligible based on patient's age to complete this topic RSV Immunizations Under 20 Months Aged Out No longer eligible based on patient's age to complete this topic
--- OUTSIDE RECORDS SUMMARY | 2025-05-28 09:11 | XMS_ITS ---
Author Organization [facility] Address [address] [place], [place] [id number] Care Team Providers Care Warp Preparer Name Role Phone LAURE ORTIZ Unavailable [phone] Paul Calvillo Unavailable Unavailable Allergies Allergen (clinical drug ingredient) Drug/Non Drug Allergy documented on EMR Reaction Allergy Type Onset Date Status lisinopril Lisinopril Unknown Drug Allergy Activ e REASON FOR VISIT *General care Medications Medication SIG (Take, Route, Frequency, Duration) Notes Start Date End Date Status hydroCHLOROthiazide 25 MG Oral; Duration : 90 Days Active Simvastatin 40 MG Oral; Duration: 90 Days Active Xarelto 20 MG Oral; Duration: 90 Days Active Levothyroxine Sodium 50 MCG Oral; Durati on: 90 Days Active Nitrofurantoin Monohyd Macro 100 MG TAKE 1 CAPSULE BY MOUTH TWICE DAILY FOR 5 DAYS WITH FOOD Oral; Duration: 5 Days Active NexIUM 40 MG 1 capsule 1/2 to 1 hour before morning meal Orally Once a day Active Sotalol HCl 80 MG 1 tablet Orally ever y 12 hrs Active Esomeprazole Magnesium 40 MG Oral; Durat ion: 90 Days Active ALPRAZolam 0.5 MG Oral; Duration: 30 Days Active Aspirin 81 81 MG 1 tablet Orally Once a day Active Iron Active Fish Oil Active Vital Signs Height 60.00 in 05/11/2025 Weight 139 lbs 05/11/2025 BMI 27.14 kg/m2 05/11/2025 Height-cm 152.40 cm 05/11/2025 Weight-kg 63.05 kg 05/11/2025 Encounters Encounter Location Date Provider Diagnosis [facility] [address] [place], [place] [id number] 05/11/2025 LAURE ORTIZ 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 ; Pain in right toe(s) M79.674 ; Pain in left toe(s) M79.675 and Unspecified atherosclerosis of [place] arteries of extremities, bilateral legs I70.203 Assessments Encounter Date Diagnosis (ICD Code) Assessment Notes Treatment Notes Treatment Clinical Notes Section Notes 05/11/2025 Fungal infection of nail (ICD-10 - B35.1) 05/11/2025 Pain in right toe(s) (ICD-10 - M79.674) 05/11/2025 Pain in left toe(s) (ICD-10 - M79.675) 05/11/2025 Unspecified atherosclerosis of [place] arteries of extremities, bilateral legs (ICD-10 - I70.203) 05/11/2025 Other Nails 1-5 Bilateral were debrided extensively with nail nippers and emery board, reducing length and girth to pink healthy tissue with any subungual debris and necrotic tissue removed Plan Of Treatment Treatment Notes Assessment Notes Other Nails 1-5 Bilateral were debrided extensively with nail nippers and emery board, reducing length and girth to pink healthy tissue with any subungual debris and necrotic tissue removed Next Appt Details Follow Up: 9 weeks, Reason: Provider Name:LAURE CHAVIS, 07/13/2025 12:30:00 PM, [address], [facility] [address], [place], [place], [id number], Progress Notes * JARROD MATAMOROS ADOB: (84 yo F)Acc No.[id number]:05/11/2025 Patient: JARROD ALLEN Provider: Blaine Ortiz DPM :1940 A ge:84 Y S ex:Female Date:05/11/2025 Address:[address] [place], [place] [id number] Subjective: * Chief Complaints: * 1 . *General care. * HPI: H PI: General care P atient presents to the office for at risk foot care. Patient states that their nails are thickened, elongated and painful. Patient states that it is aggravated by shoe gear. Onset is gradual. Patient denies being diabetic., Patient is taking prescription blood thinners., Date last seen by Dr. Calvillo was April 2025., Initials JMR. * ROS: G eneral / Constitutional: Patient denies c hange in appetite, fatigue, chills, fever.? C ardiovascular: Chest pain d enies. N eurologic: Loss of use of extremity d enies. * Medical History: M edical History Verified. * Family History: F ather: PRN - Father: :: Stroke,,known absent , :: Hypertension,,known absent , :: Arthritis,,known absent . M other: PRN - Mother: :: Hypertension,,known absent , :: Arthritis,,known absent . B rother: SIB - Brother: . S ister: SIB - Sister: :: Hypertension,,known absent . * Social History: M igrated Social History: M igrated Social History: Smoking Status : Never smoked , History of tobacco use :. * Medications: T aking Iron , Taking Fish Oil , Taking Aspirin 81 81 MG Tablet Delayed Release 1 tablet Orally Once a day , Taking NexIUM 40 MG Capsule Delayed Release 1 capsule 1/2 to 1 hour before morning meal Orally Once a day , Taking Sotalol HCl 80 MG Tablet 1 tablet Orally every 12 hrs , Taking Esomeprazole Magnesium 40 MG Capsule Delayed Release Oral , Taking ALPRAZolam 0.5 MG Tablet Oral , Taking hydroCHLOROthiazide 25 MG Tablet Oral , Taking Simvastatin 40 MG Tablet Oral , Taking Xarelto 20 MG Tablet Oral , Taking Levothyroxine Sodium 50 MCG Tablet Oral , Taking Nitrofurantoin Monohyd Macro 100 MG Capsule TAKE 1 CAPSULE BY MOUTH TWICE DAILY FOR 5 DAYS WITH FOOD Oral , Medication List reviewed and reconciled with the patient * Allergies: L isinopril. Objective: * Vitals: W t: 139 lbs, Wt-k.05 kg, Ht: 60.00 in, Ht-cm: 152.40 cm, BMI: 27.14 Index, Body Surface Area: 1.63. * Examination: P hysical Examination: Gen: T he patient is awake, alert, well developed, well groomed and well nourished. They are in no apparent distress. . Musc: F oot structure is normal bilateral. Muscle strength is 5/5 to all joints bilaterally. There is no pain on palpation. . Derm: T here is absent hair growth on bilateral feet. There are pigmentary changes of bilateral foot. The skin color is red. The skin texture is thin and shiny. Distal cooling noted in bilateral feet. Nails are thick, discolored, and dystrophic with subungual debris. They are painful to palpation. . Neuro: G rossly intact to light touch bilateral . Vasc: P osterior tibialis pulse 0/4 bilaterally. Dorsalis pedis pulse 0/4 bilaterally. No edema noted. Capillary fill time > 3 seconds to all digits. . Assessment: * Assessment: 1. F ungal infection of nail - B35.1 (Primary) 2 . P ain in right toe(s) - M79.674 3 . P ain in left toe(s) - M79.675 4 . U nspecified atherosclerosis of [place] arteries of extremities, bilateral legs - I70.203 Plan: * Treatment: * Immunizations: Immunization record has been reviewed and updated. * Procedure Codes: 1 1721 DEBRIDE NAIL, 6 OR MORE, Modifiers: Q8 * Preventive Medicine: Screenings: F all risk screening Fall Risk Assessment: N o falls in the past year * Follow Up: 9 weeks * Billing Information: * Visit Code: * Procedure Codes: 45107 DEBRIDE NAIL, 6 OR MORE. Modifiers: Q8 * Electronic signature of LAURE ORTIZ DPM on 05/28/2025 at 09:11 AM CDT Sign off status: Pending * Provider: Blaine Ortiz DPM Date: 0 05/11/2025 Generated for Evelina Leigh/Renzo on: 0 05/28/2025 09:11 AM CDT History and Physical Notes * HPI (History of Present Illness) Category Sub-Category Detail Notes Category Not es HPI General care Patient presents to the office for at risk foot care. Patient states that their nails are thickened, elongated and painful. Patient states that it is aggravated by shoe gear. Onset is gradual. Patient denies being diabetic., Patient is taking prescription blood thinners., Date last seen by Dr. Calvillo was April 2025., Initials JMR Examination Category Sub-Category Detail Notes Category Not es Physical Examination Gen: The patient is awake, alert, well developed, well groomed and well nourished. They are in no apparent distress. Vasc: Posterior tibialis p ulse 0/4 bilaterally. Dorsalis pedis pulse 0/4 bilaterally. No edema noted. Capillary fill time > 3 seconds to all digits. Neuro: Grossly intact to li ght touch bilateral Musc: Foot structure is no rmal bilateral. Muscle strength is 5/5 to all joints bilaterally. There is no pain on palpation. Derm: There is absent hair growth on bilateral feet. There are pigmentary changes of bilateral foot. The skin color is red. The skin texture is thin and shiny. Distal cooling noted in bilateral feet. Nails are thick, discolored, and dystrophic with subungual debris. They are painful to palpation.
--- OUTSIDE RECORDS SUMMARY | 2025-05-28 09:11 | XMS_ITS | Referral Summary ---
Author Organization [facility] [address] Address [address] [place] [address] Care Team Providers Care Data Analyst Report Writer Name Role Phone Paul Calvillo MD Primary Care Provider [phone] Allergies Active Allergy Reactions Criticality Noted Date Comments Lisinopril Swelling Medium 11/07/2018 Swollen lip Medications simvastatin (ZOCOR) 40 mg tablet take 1 tablet (40MG) by oral route every day in the evening [address] (NexIUM) 40 mg capsule take 1 capsule (40MG) by oral route every day 0 3 Active hydroCHLOROthia zide (HYDRODIURIL) 25 mg tablet take 1 tablet (25MG) by oral route every day 0 3 Active Additional Information Patient taking differently: 12.5 mg, Reported on 09/08/2024 ALPRAZolam (XANAX) 0.5 mg tablet take 1 tablet (0.5MG) by oral route 2 times every day as needed for anxiety 0 3 Active omega-3 fatty acids-fish oil 340-1,000 mg capsule take 1 by Oral route twice a day 0 3 Active nitroglycerin (NITROSTAT) 0.[address] 1 tablet by sublingual route at the 1st sign of attack; may repeat every 5 min until relief; if pain persists after 3 tablets in 15 min, prompt medical attention is recommended 25 1 3 Active multivitamin tablet tablet take 1 tablet by oral route every day with food 0 0 3 Active levothyroxine (SYNTHROID, LEVOTHROID) 50 mcg tablet take .5 tablet by oral route every day 0 0 4 Active aspirin (ASPIR-81) 81 mg tablet take 1 tablet by oral route every day 0 0 5 Active sotaloL (BETAPACE) 80 mg tablet TAKE ONE-HALF TABLET BY MOUTH TWICE DAILY 90 tablet 3 4 Active Xarelto 20 mg tablet TAKE 1 TABLET BY MOUTH DAILY 90 tablet 3 4 Active Active Problems Problem Noted Date Diagnosed Date Paroxysmal atrial fibrillation 08/18/2019 Coronary arteriosclerosis in [place] artery 06/28 Overview (02/21/2017): CAD in [place] artery Presence of stent in coronary artery 06/28/2015 Overview (02/21/2017): S/P coronary artery stent placement Social History Tobacco Use Types Packs/Day Years Used Date Smoking Tobacco: Never Smokeless Tobacco: Never Tobacco Cessation:Counseling Given: Not Answered Alcohol Use Standard Drinks/Week Comments No 0 (1 standard drink = 0.6 oz pur e alcohol) PHQ-2 Answer Date Recorded PHQ-2 Total Score (If total score is 3 or more points, staff should administer the PHQ-9) 0 02/23/2020 Comments Unknown Sex and Gender Information Value Date Recorded Sex Assigned at Not on file 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 Gender Identity Not on file Sexual Orientation Not on file Last Filed Vital Signs Vital Sign Reading Time Taken Comments Blood Pressure 130/80 09/08/2024 9:58 AM CDT Pulse 72 09/08/2024 9:58 AM CDT Temperature - - Respiratory Rate - - Oxygen Saturation 96% 09/08/2024 9:58 AM CDT Inhaled Oxygen Concentration - - Weight 58.3 kg (128 lb 8 oz) 09/08/2024 9:58 AM CDT Height 152.4 cm (5') 09/08/2024 9:58 AM CDT Body Mass Index 25.1 09/08/2024 9:58 AM CDT Plan of Treatment Not on file Insurance MEDICARE [facility] H[facility]/PPO Address: [id number] [place] [address] MEDICARE [facility] H[facility]/PPO Address: [facility] [id number] [place] [address] Care Teams Data Analyst Report Writer Relationship Specialty Start Date End Date Paul Calvillo MD PCP - General Family Practice 09/05/23
--- OUTSIDE RECORDS SUMMARY | 2025-05-28 09:11 | XMS_ITS | Patient Health Record ---
Author Organization [facility] Address [address] [place], [place] [id number] Care Team Providers Care Managed Care Specialist Name Role Phone LAURE JULIAN Unavailable [phone] Paul Calvillo Unavailable Unavailable Allergies Allergen (clinical drug ingredient) Drug/Non Drug Allergy documented on EMR Reaction Allergy Type Onset Date Status lisinopril Lisinopril Unknown Drug Allergy Activ e Reason For Referral No Information Medications Medication SIG (Take, Route, Frequency, Duration) Notes Start Date End Date Status hydroCHLOROthiazide 25 MG Oral; Duration : 90 Days Active Simvastatin 40 MG Oral; Duration: 90 Days Active Xarelto 20 MG Oral; Duration: 90 Days Active Levothyroxine Sodium 50 MCG Oral; Durati on: 90 Days Active NexIUM 40 MG 1 capsule 1/2 to 1 hour before morning meal Orally Once a day Active Sotalol HCl 80 MG 1 tablet Orally ever y 12 hrs Active Esomeprazole Magnesium 40 MG Oral; Durat ion: 90 Days Active ALPRAZolam 0.5 MG Oral; Duration: 30 Days Active Iron Active Fish Oil Active Aspirin 81 81 MG 1 tablet Orally Once a day Active Nitrofurantoin Monohyd Macro 100 MG TAKE 1 CAPSULE BY MOUTH TWICE DAILY FOR 5 DAYS WITH FOOD Oral; Duration: 5 Days Active Immunizations Vaccine Route Administration Date Status Comme nts Influenza, high dose seasonal Unknown 10/17/2023 Admini stered Vital Signs Height-cm 152.40 cm 05/11/2025 Weight-kg 63.05 kg 05/11/2025 Height 60.00 in 05/11/2025 Weight 139 lbs 05/11/2025 BMI 27.14 kg/m2 05/11/2025 Encounters Encounter Location Date Provider Diagnosis [facility] [address] [id number] 05/11/2025 LAURE [place] 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 ; Pain in right toe(s) M79.674 ; Pain in left toe(s) M79.675 and Unspecified atherosclerosis of [place] arteries of extremities, bilateral legs I70.203 [facility] [place] [address] [id number] 07/13/2024 LAURE [place] 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 ; Pain in right toe(s) M79.674 ; Pain in left toe(s) M79.675 and Unspecified atherosclerosis of [place] arteries of extremities, bilateral legs I70.203 [facility] [place] [address] [id number] 09/14/2024 LAURE [place] 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 ; Pain in right toe(s) M79.674 ; Pain in left toe(s) M79.675 and Unspecified atherosclerosis of [place] arteries of extremities, bilateral legs I70.203 [facility] [place] [address] [id number] 12/08/2024 LAURE [place] 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 ; Pain in right toe(s) M79.674 ; Pain in left toe(s) M79.675 and Unspecified atherosclerosis of [place] arteries of extremities, bilateral legs I70.203 [facility] [place] [address] [id number] 02/23/2025 LAURE [place] 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 ; Pain in right toe(s) M79.674 ; Pain in left toe(s) M79.675 and Unspecified atherosclerosis of [place] arteries of extremities, bilateral legs I70.203 Assessments Encounter Date Diagnosis (ICD Code) Assessment Notes Treatment Notes Treatment Clinical Notes Section Notes 07/13/2024 Fungal infection of nail (ICD-10 - B35.1) 09/14/2024 Fungal infection of nail (ICD-10 - B35.1) 12/08/2024 Fungal infection of nail (ICD-10 - B35.1) 02/23/2025 Fungal infection of nail (ICD-10 - B35.1) 05/11/2025 Fungal infection of nail (ICD-10 - B35.1) 05/11/2025 Pain in right toe(s) (ICD-10 - M79.674) 02/23/2025 Pain in right toe(s) (ICD-10 - M79.674) 12/08/2024 Pain in right toe(s) (ICD-10 - M79.674) 09/14/2024 Pain in right toe(s) (ICD-10 - M79.674) 07/13/2024 Pain in right toe(s) (ICD-10 - M79.674) 07/13/2024 Pain in left toe(s) (ICD-10 - M79.675) 09/14/2024 Pain in left toe(s) (ICD-10 - M79.675) 12/08/2024 Pain in left toe(s) (ICD-10 - M79.675) 02/23/2025 Pain in left toe(s) (ICD-10 - M79.675) 05/11/2025 Pain in left toe(s) (ICD-10 - M79.675) 05/11/2025 Unspecified atherosclerosis of [place] arteries of extremities, bilateral legs (ICD-10 - I70.203) 02/23/2025 Unspecified atherosclerosis of [place] arteries of extremities, bilateral legs (ICD-10 - I70.203) 12/08/2024 Unspecified atherosclerosis of [place] arteries of extremities, bilateral legs (ICD-10 - I70.203) 09/14/2024 Unspecified atherosclerosis of [place] arteries of extremities, bilateral legs (ICD-10 - I70.203) 07/13/2024 Unspecified atherosclerosis of [place] arteries of extremities, bilateral legs (ICD-10 - I70.203) 05/11/2025 Other Nails 1-5 Bilateral were debrided extensively with nail nippers and emery board, reducing length and girth to pink healthy tissue with any subungual debris and necrotic tissue removed 07/13/2024 Other Nails 1-5 Bilateral were debrided extensively with nail nippers and emery board, reducing length and girth to pink healthy tissue with any subungual debris and necrotic tissue removed 09/14/2024 Other Nails 1-5 Bilateral were debrided extensively with nail nippers and emery board, reducing length and girth to pink healthy tissue with any subungual debris and necrotic tissue removed 12/08/2024 Other Nails 1-5 Bilateral were debrided extensively with nail nippers and emery board, reducing length and girth to pink healthy tissue with any subungual debris and necrotic tissue removed 02/23/2025 Other Nails 1-5 Bilateral were debrided extensively with nail nippers and emery board, reducing length and girth to pink healthy tissue with any subungual debris and necrotic tissue removed Plan Of Treatment Next Appt Details Provider Name:LAURE CHAVIS, 07/13/2025 12:30:00 PM, [address], [place], [place], [id number], Insurance Providers Payer Name Payer Address Payer Phone Subscriber Number Group Number Insured Name Patient Relationship to Insured Coverage Start Date Coverage End Date Medicare Part B [facility] [address] [place] [address] [id number] JARROD MATAMOROS Self - patient is the insured [facility] [address] [facility] [place] [id number] JARROD MATAMOROS Self - patient is the insured
--- OUTSIDE RECORDS SUMMARY | 2025-05-28 09:11 | XMS_ITS | Clinical Summary ---
Author Organization [facility] [address] Address [address] [place] [address] Care Team Providers Care Specialist Field Engineer Name Role Phone Paul Calvillo MD Primary Care Provider [phone] Allergies Active Allergy Reactions Criticality Noted Date [...] Paroxysmal atrial fibrillation 08/18/2019 Coronary arteriosclerosis in [place] artery 06/28 Overview (02/21/2017): CAD in [place] artery Presence of stent in coronary artery 06/28/2015 Overview (02/21/2017): S/P coronary artery stent placement Surgical History Surgery Date Site/Laterality Comments OTHER SURGICAL HISTORY mild , mild MR, mild TR: Medical History Medical History Date Comments Hx Other Medical GERD, HTN, HLD, MRSA boil Hx Other Medical mild , mild M R, mild TR Family History Medical History Relation Name Comments Other Father 2 OR at 43, at 74 afib; Relation Name Status Comments Father 1 Alive Father 2 Social History Tobacco Use Types Packs/Day Years [...] on file 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 Gender Identity Not on file Sexual Orientation Not on file Obstetrics History Last Filed Vital Signs Vital Sign Reading [...] 09/08/2024 9:58 AM CDT Plan of Treatment Health Maintenance Due Date Last Done Comments Fall Risk Assessment 1940 Osteoporosis Screening-Bone Density Scan 1940 DTaP/Tdap/Td Vaccine (1 - Tdap) 1952 Hepatitis B Screening 1959 Well Visit 65+ 2006 Zoster Vaccine (2 of 3) 07/10/2007 05/15/2007 Pneumococcal vaccine 65+ (2 of 2 - PCV) 08/11/2015 08/11/2014 Depression Screening 02/22/2021 02/23/2020 Influenza Vaccine (Season Ended) 2025 08/22/2020, 08/25/2019, 08/06/2018, Additional history exists Insurance ([place] [id number] MEDICARE [facility] Address: [address] [address] [place] [address] [facility] HMO/PPO Address: [address] [address] [place] [address] MEDICARE [facility] Address: [address] [address] [place] [address] [facility] H[facility]/PPO Address: [address] [address] [place] [address] Care Teams Specialist Field Engineer Relationship Specialty Start Date End Date Paul Calvillo MD PCP - General Family Practice 09/05/23
[2025-05-28 09:18] VITALS: BP 154/81; PULSE 62; RESP 18; TEMP 36.7; O2SAT 98
--- NOTE | 2025-05-28 09:26 | ED.WOUNDLAC ---
HPI - Wound/Laceration General Chief Complaint: Wound/Laceration <Shasha Shen PA-C - Last Filed: 05/28/25 12:51> Stated Complaint: skin graft bleeding <Shasha Shen PA-C - Last Filed: 05/28/25 12:51> Time Seen by Provider: 05/28/25 09:00 <Shasha Shen PA-C - Last Filed: 05/28/25 12:51> History of Present Illness HPI narrative: 84 y/o F with PMHx of afib on Xarelto presents to the ED for concerns for bleeding to her skin graft site. Pt states she had skin cancer removed and a graft place to the left side of her nose [address] Zavaleta at [facility]. She states she was holding her Xarelto before and after the procedure. Yesterday she developed bleeding to the site and contacted the office and was told to continue changing her bandages. She was able to control the bleeding with an ice pack and gauze last night. She asked the dermatology office if she should restart her Xarelto and was told she should so she took a dose yesterday. States when she woke up this morning she was having blood running down her face and across her eye. States she tried to call the office this morning but they were closed so she came to the emergency department. She states she held her Xarelto this morning. Patient is also found to be in AFib with RVR and a rate of 120 On arrival. She denies any chest pain or shortness of breath, palpitations. She states she took her 80 mg of sotalol this morning at 0730. She is endorsing some anxiety about her skin graft. She denies any fevers or purulent drainage. <Shasha Shen PA-C - Last Filed: 05/28/25 12:51> Related Data Home Medications: Home Medications ?Medication ?Instructions ?Recorded ?Confirmed ?Last Taken ?Type aspirin 81 mg tablet,delayed 81 mg PO DAILY 11/09/20 03/18/25 07/31/24 History release (Adult Aspirin Regimen) rivaroxaban 20 mg tablet (Xarelto) 20 mg PO QA 11/09/20 03/18/25 06/21/24 History omega-3 fatty acids-fish oil 435 1 cap PO BID 09/20/22 03/18/25 07/31/24 History mg-880 mg capsule ferrous sulfate 325 mg (65 mg 325 mg PO DAILY 08/01/23 03/18/25 06/22/24 History iron) tablet zkqcemaj-xqr-sqrub ac 400 1 tablet PO DAILY 08/01/23 03/18/25 07/31/24 History mcg-calcium carb 500 mg-vit K1 20 mcg tablet turmeric 400 mg capsule 400 mg PO DAILY 06/08/24 03/18/25 06/22/24 History acetaminophen 500 mg tablet 500 mg PO Q6H PRN 04/27/25 Unknown History (Tylenol Extra Strength) levothyroxine 50 mcg capsule 50 mcg PO DAILY 04/27/25 Unknown History <Shasha Shen PA-C - Last Filed: 05/28/25 12:51> Allergies/Adverse Reactions: Allergies Allergy/AdvReac Type Severity Reaction Status Date / Time lisinopril Allergy Severe ANGIOEDEMA Verified 04/27/25 10:03 <Shasha Sehn PA-C - Last Filed: 05/28/25 12:51> Review of Systems Review of Systems: All systems reviewed & are unremarkable except as noted in HPI and below <Shasha Shen PA-C - Last Filed: 05/28/25 12:51> [facility] Past Medical History Medical History: Medical History Mitral regurgitation Dyslipidemia Coronary artery disease Osteoporosis Atrial fibrillation Hyperlipidemia Adult hypothyroidism Essential (primary) hypertension <Shasha Shen PA-C - Last Filed: 05/28/25 12:51> Surgical History Surgical History: Surgical History H/O heart artery stent Stented coronary artery <Shasha Shen PA-C - Last Filed: 05/28/25 12:51> Family History Family History: Family History Mother Hypertension Hyperlipidemia Father Heart disease Sibling Alzheimer disease <Shasha Shen PA-C - Last Filed: 05/28/25 12:51> Social History Social History: Social History Smoking status: Never smoker Second hand tobacco smoke exposure: Yes Alcohol intake: never Substance use: never Substance use type: does not use Do You Feel Safe in your Home?: Yes Lack of Transportation: No Lack of Food: Never True Current Housing: I Have Housing Concerned About Future Housing: No Difficulty Paying Gas/Electric Bills: No Difficulty Paying for Meds: No Currently Unemployed: No Education: High School Diploma/GED Difficulty w/ Childcare or Family Care: No Living arrangements: with family Occupation/Education: retired Spiritual care concerns: No <Shasha Shen PA-C - Last Filed: 05/28/25 12:51> Exam Narrative: GENERAL: Well-appearing, well-nourished, and in no acute distress. HEAD: Normocephalic, atraumatic. EYES: PERRLA and EOMI. ENT: Nares clear, no rhinorrhea or epistaxis. Mucous membranes moist. Xeroform gauze attached to the left side of the nose with multiple sutures. No active bleeding weeping from gauze or graft site. There is surrounding erythema to the graft site with purulent drainage. NECK: Supple. CHEST: Clear to auscultation. No respiratory distress. HEART: Tachycardic, regular rhythm. No murmur heard. Normal peripheral pulses. ABDOMEN: Soft, nontender, nondistended, normal active bowel sounds. EXTREMITIES: Normal range of motion. No edema. SKIN: Warm, dry, no rash. NEURO: No focal deficits. Alert and oriented x3 <Shasha Shen PA-C - Last Filed: 05/28/25 12:51> Course MICA PLATE LAYER HAND/PA Physician Supervision This visit was performed by both a physician and an APC. I performed all aspects of the MDM as documented. <Marco Aguilera MD - Last Filed: 05/28/25 18:39> Vital Signs Vital signs: Vital Signs Temperature 97.9 F 05/28/25 09:03 Pulse Rate 125 H 05/28/25 09:03 Respiratory Rate 18 05/28/25 09:03 Blood Pressure 130/111 H 05/28/25 09:03 Pulse Oximetry 98 05/28/25 09:03 Temperature 98.0 F 05/28/25 09:18 Pulse Rate 62 05/28/25 09:18 Respiratory Rate 18 05/28/25 09:18 Blood Pressure 154/81 H 05/28/25 09:18 Pulse Oximetry 98 05/28/25 09:18 Oxygen Delivery Room Air 05/28/25 09:18 <Shasha Shen PA-C - Last Filed: 05/28/25 12:51> Vital Signs Temperature 97.9 F 05/28/25 09:03 Pulse Rate 125 H 05/28/25 09:03 Respiratory Rate 18 05/28/25 09:03 Blood Pressure 130/111 H 05/28/25 09:03 Pulse Oximetry 98 05/28/25 09:03 Temperature 98.0 F 05/28/25 09:18 Pulse Rate 62 05/28/25 09:18 Respiratory Rate 18 05/28/25 09:18 Blood Pressure 154/81 H 05/28/25 09:18 Pulse Oximetry 98 05/28/25 09:18 Oxygen Delivery Room Air 05/28/25 09:18 <Marco Aguilera MD - Last Filed: 05/28/25 18:39> MDM - Wound/Laceration MDM Narrative Medical decision making narrative: 84-year-old female with history of AFib on Xarelto presents to the emergency department for bleeding to her skin graft site for the past 2 days. Patient had a skin graft perform 3 days ago by [facility], Dr. Zavaleta for skin cancer. She has had intermittent bleeding for the past day. Patient is found to be in AFib with RVR upon arrival with rates in the 120 use. She is asymptomatic. Her skin graft is currently not bleeding. She is afebrile and nontoxic appearing, exam is notable for the above. EKG shows atrial flutter with RVR of 109, normal QRS duration normal QTC, no ischemic changes. CBC with mild leukocytosis of 10.5. Hemoglobin is stable at 13.3. Chemistries are largely unremarkable. Mag within normal limits. TSH within normal limits. Patient was given a L of IV fluids. Heart rate remained around 120s bpm. Patient was then given 10 mg of diltiazem push with improvement of rate to 87 bpm. Blood pressure remained stable. Patient remains asymptomatic. Dr. Moncada, station gateman from [facility], was consulted regarding patient's skin graft. She reviewed pictures of patient's graft with patient's permission. She advises to have patient continue bandages, start Keflex 500mg TID and f/u outpatient. Bleeding remains controlled. I discussed AFib with RVR with bag making machine operator on-call, Dr. Muniz, who advises that patient continue sotalol 80 mg and agrees to hold Xarelto for the next couple of days until her bleeding has stopped. Does not recommend adding any rate control medications at this time and advises to follow-up closely with Dr. Chavez. Patient was given these instructions and strict ED return precautions. She is agreeable with the plan verbalized understanding. Discharged in stable condition. <Shasha Shen PA-C - Last Filed: 05/28/25 12:51> Lab Data Result diagrams: 05/28/25 10:25 05/28/25 10:25 <Shasha Shen PA-C - Last Filed: 05/28/25 12:51> Labs: Lab Results 05/28/25 05/28/25 Range/Units 10:25 10:42 WBC 10.5 H (4.5-10.0) K/mm3 RBC 4.17 L (4.2-5.4) M/mm3 Hgb 13.3 (12.0-15.0) g/dL Hct 38.6 (37.0-47.0) % MCV 92.6 (80-100) fl MCH 31.9 (26-34) pg MCHC 34.5 (32-36) g/dl RDW 12.2 (11.5-14.5) % Plt Count 190 (150-375) k/mm3 MPV 10.5 H (7.4-10.4) fl Immature Gran % (Auto) 0.2 (0-0.5) % Neut % (Auto) 82.6 H (45.5-73.1) % Lymph % (Auto) 10.4 L (18.3-44.2) % Garfield % (Auto) 5.9 (2.6-8.5) % Eos % (Auto) 0.5 (0-4.4) % Baso % (Auto) 0.4 (0.2-1.2) % Lymph # (Auto) 1.09 (0.9-3.2) K/mm3 Garfield # (Auto) 0.6 (0.1-0.6) K/mm3 Eos # (Auto) 0.1 (0-0.3) K/mm3 Baso # (Auto) 0.0 (0.0-0.1) K/mm3 Abs Immat Gran (auto) 0.02 (0.00-0.031) K/mm3 Absolute Neuts (auto) 8.6 H (1.3-6.7) K/mm3 Absolute Nucleated RBC 0.000 (0.0-0.012) K/mm3 Nucleated RBC % 0.0 (0.0-0.2) % PT 13.2 (11.1-14.7) Seconds INR 1.0 APTT 26.7 (22.3-36.8) Seconds Sodium 139 (137-145) mmol/L Potassium 3.9 (3.4-5.0) mmol/L Chloride 105 (98-107) mmol/L Carbon Dioxide 23 (22-30) mmol/L Anion Gap 11 (4-12) mmol/L BUN 10 (7-17) mg/dL Creatinine 0.62 L (0.7-1.0) mg/dL Estim Creat Clear Calc 48 ml/min Estimated GFR > 60 (59 - ) Glucose 117 H (65-110) mg/dL Calcium 9.4 (8.4-10.2) mg/dL Magnesium 1.9 (1.6-2.3) mg/dL Total Bilirubin 0.7 (0.2-1.3) mg/dL AST 37 H (14-36) U/L ALT 18 (6-35) U/L Alkaline Phosphatase 78 (38-126) U/L Total Protein 7.7 (6.3-8.2) g/dL Albumin 4.3 (3.5-5.1) g/dL TSH (Reflex) 2.210 (0.465-4.68) uIU/mL Urine Color Yellow (Yellow) Urine Appearance Clear (Clear) Urine pH 7.0 (5.0-9.0) Ur Specific [place] 1.003 (1.001-1.035) Urine Protein Negative (Negative) mg/dL Urine Glucose (UA) Negative (Negative) mg/dL Urine Ketones Negative (Negative) mg/dL Ur Blood (Man) Trace (Negative) Urine Nitrate Negative (Negative) Urine Bilirubin Negative (Negative) Urine Urobilinogen 0.2 (<2.0) mg/dL Leukocyte Esterase Rfl Trace H (Negative) [place]/UL Urine RBC 0-2 (0-2) /hpf Urine WBC 0-5 (0-3) /hpf Ur Squamous Epith Cells None seen (Few) /hpf Urine Bacteria None seen /hpf Urine Casts 0-2 <Shasha Shen PA-C - Last Filed: 05/28/25 12:51> Lab Results 05/28/25 05/28/25 Range/Units 10:25 10:42 WBC 10.5 H (4.5-10.0) K/mm3 RBC 4.17 L (4.2-5.4) M/mm3 Hgb 13.3 (12.0-15.0) g/dL Hct 38.6 (37.0-47.0) % MCV 92.6 (80-100) fl MCH 31.9 (26-34) pg MCHC 34.5 (32-36) g/dl RDW 12.2 (11.5-14.5) % Plt Count 190 (150-375) k/mm3 MPV 10.5 H (7.4-10.4) fl Immature Gran % (Auto) 0.2 (0-0.5) % Neut % (Auto) 82.6 H (45.5-73.1) % Lymph % (Auto) 10.4 L (18.3-44.2) % Garfield % (Auto) 5.9 (2.6-8.5) % Eos % (Auto) 0.5 (0-4.4) % Baso % (Auto) 0.4 (0.2-1.2) % Lymph # (Auto) 1.09 (0.9-3.2) K/mm3 Garfield # (Auto) 0.6 (0.1-0.6) K/mm3 Eos # (Auto) 0.1 (0-0.3) K/mm3 Baso # (Auto) 0.0 (0.0-0.1) K/mm3 Abs Immat Gran (auto) 0.02 (0.00-0.031) K/mm3 Absolute Neuts (auto) 8.6 H (1.3-6.7) K/mm3 Absolute Nucleated RBC 0.000 (0.0-0.012) K/mm3 Nucleated RBC % 0.0 (0.0-0.2) % PT 13.2 (11.1-14.7) Seconds INR 1.0 APTT 26.7 (22.3-36.8) Seconds Sodium 139 (137-145) mmol/L Potassium 3.9 (3.4-5.0) mmol/L Chloride 105 (98-107) mmol/L Carbon Dioxide 23 (22-30) mmol/L Anion Gap 11 (4-12) mmol/L BUN 10 (7-17) mg/dL Creatinine 0.62 L (0.7-1.0) mg/dL Estim Creat Clear Calc 48 ml/min Estimated GFR > 60 (59 - ) Glucose 117 H (65-110) mg/dL Calcium 9.4 (8.4-10.2) mg/dL Magnesium 1.9 (1.6-2.3) mg/dL Total Bilirubin 0.7 (0.2-1.3) mg/dL AST 37 H (14-36) U/L ALT 18 (6-35) U/L Alkaline Phosphatase 78 (38-126) U/L Total Protein 7.7 (6.3-8.2) g/dL Albumin 4.3 (3.5-5.1) g/dL TSH (Reflex) 2.210 (0.465-4.68) uIU/mL Urine Color Yellow (Yellow) Urine Appearance Clear (Clear) Urine pH 7.0 (5.0-9.0) Ur Specific [place] 1.003 (1.001-1.035) Urine Protein Negative (Negative) mg/dL Urine Glucose (UA) Negative (Negative) mg/dL Urine Ketones Negative (Negative) mg/dL Ur Blood (Man) Trace (Negative) Urine Nitrate Negative (Negative) Urine Bilirubin Negative (Negative) Urine Urobilinogen 0.2 (<2.0) mg/dL Leukocyte Esterase Rfl Trace H (Negative) [place]/UL Urine RBC 0-2 (0-2) /hpf Urine WBC 0-5 (0-3) /hpf Ur Squamous Epith Cells None seen (Few) /hpf Urine Bacteria None seen /hpf Urine Casts 0-2 <Marco Aguilera MD - Last Filed: 05/28/25 18:39> Discharge Plan Discharge Clinical Impression: Atrial fibrillation with RVR Complication of skin graft Qualifiers: Transplant complication type: unspecified Qualified Code(s): T86.829 - Unspecified complication of skin graft (allograft) (autograft) <Shasha Shen PA-C - Last Filed: 05/28/25 12:51> Patient Disposition: Home <Shasha Shen PA-C - Last Filed: 05/28/25 12:51> Condition: Stable <Shasha Shen PA-C - Last Filed: 05/28/25 12:51> Instructions: Antibiotic Form, A-fib (Atrial Fibrillation) (ED) <Shasha Shen PA-C - Last Filed: 05/28/25 12:51> Additional Instructions: You were evaluated in the emergency department for bleeding to her skin graft site. The bleeding has been controlled in the emergency department. Your dermatology team is recommending to start antibiotics which have been sent to the pharmacy. Please take these as directed. Please continue changing the dressings as directed by her station gateman and avoid touching the skin graft otherwise. Your also found to have AFib with an increased heart rate. We were able to slow her heart rate down in the emergency department. Continue taking her sotalol 80 mg as prescribed and follow-up closely with Dr. Chavez. Please hold your Xarelto for the next 2 days until your bleeding is controlled. Return to the emergency department if you develop chest pain, shortness of breath, uncontrollable bleeding, fever or other concerning symptoms. <Shasha Shen PA-C - Last Filed: 05/28/25 12:51> Patient Language: Moldovan <Shasha Shen PA-C - Last Filed: 05/28/25 12:51> Prescriptions: New cephalexin 500 mg capsule 500 mg PO Q8H 7 Days Qty: 21 0RF No Action levothyroxine 50 mcg tablet 50 mcg PO QPM Qty: 90 2RF hydrochlorothiazide 25 mg tablet 12.5 mg PO DAILY Qty: 90 1RF aspirin [Adult Aspirin Regimen] 81 mg tablet,delayed release (DR/EC) 81 mg PO DAILY Xarelto 20 mg tablet 20 mg PO QAM Rx Instructions: must administer with evening meal omega-3 fatty acids-fish oil 435-880 mg capsule 1 cap PO BID acetaminophen [Tylenol Extra Strength] 500 mg tablet 500 mg PO Q6H PRN levothyroxine 50 mcg capsule 50 mcg PO DAILY methylprednisolone [Medrol (Michael)] 4 mg tablets,dose pack See Rx Instructions PO PER PKG DIR Qty: 21 0RF Rx Instructions: PO PER PKG DIR for 6 days ferrous sulfate 325 mg (65 mg iron) Tablet 325 mg PO DAILY vq-rgc-gmddq-calcium carb-K1 400 mcg-500 mg calcium-20 mcg Tablet 1 tablet PO DAILY simvastatin 40 mg tablet 40 mg PO QPM Qty: 90 1RF esomeprazole magnesium 40 mg capsule,delayed release(DR/EC) See Rx Instructions .ROUTE .COMPLEX Qty: 90 1RF Dose Instruction: TAKE 1 CAPSULE BY MOUTH DAILY Rx Instructions: TAKE 1 CAPSULE BY MOUTH DAILY alprazolam 0.5 mg tablet 0.5 mg PO BID Qty: 60 0RF sotalol 80 mg tablet 80 mg PO DAILY Qty: 90 1RF turmeric 400 mg Capsule 400 mg PO DAILY <Shasha Shen PA-C - Last Filed: 05/28/25 12:51> Follow-up/Referrals: Ayaz Chavez MD [Physician] - Paul Calvillo MD [Primary Care Provider] - <Shasha Shen PA-C - Last Filed: 05/28/25 12:51>
--- NOTE | 2025-05-28 09:28 | ECG_ITS ---
Test Date: 2025-05-28 10:24:48 Measurements Intervals Delta Rate: 109 P: 0 TN: 0 QRS: 25 QRSD: 89 T: 8 QT: 356 QTc: 480 Interpretive Statements ATRIAL FLUTTER WITH RAPID VENTRICULAR RESPONSE Electronically Signed On 05-28-2025 11:09:47 CDT by Servando Foote D.O
[2025-05-28] MEDS: SODIUM CHLORIDE 0.9% IV 1,000 ML 999 ML IV CONT (10:09)
[2025-05-28 10:33] LABS: Hematocrit 38.6 % (37.0-47.0); Hemoglobin 13.3 g/dL (12.0-15.0); Immature Granulocyte Percent A 0.2 % (0-0.5); Lymphocytes Absolute Auto 1.09 K/mm3 (0.9-3.2); Mean Corpuscular HGB Conc 34.5 g/dl (32-36); Mean Corpuscular Hemoglobin 31.9 pg (26-34); Mean Corpuscular Volume 92.6 fl (80-100); Nucleated Red Blood Cells Absolute Auto 0.000 K/mm3 (0.0-0.012); Nucleated Red Blood Cells Perc 0.0 % (0.0-0.2); Platelet Count Result 190 k/mm3 (150-375); Red Blood Count 4.17 M/mm3 (4.2-5.4); White Blood Count 10.5 K/mm3 (4.5-10.0)
[2025-05-28 10:46] LABS: INR 1.0; Prothrombin Time 13.2 Seconds (11.1-14.7)
[2025-05-28 10:47] LABS: Partial Thromboplastin Time 26.7 Seconds (22.3-36.8)
[2025-05-28 10:54] LABS: Add Urine Microscopic? YES; Appearance Urine Clear (Clear); Glucose Urine UA Negative (Negative); Leukocyte Esterase Ur Trace LEU/UL (Negative); Nitrate Urine Negative (Negative); Non Pathogenic Casts 0-2; Specific Grav Ur 1.003 (1.001-1.035)
[2025-05-28 11:05] LABS: Alanine Aminotransferase 18 U/L (6-35); Albumin Level 4.3 g/dL (3.5-5.1); Alkaline Phosphatase 78 U/L (38-126); Anion Gap 11 mmol/L (4-12); Aspartate Amino Transferase 37 U/L (14-36); Bilirubin,Total 0.7 mg/dL (0.2-1.3); Blood Urea Nitrogen 10 mg/dL (7-17); Calcium 9.4 mg/dL (8.4-10.2); Carbon Dioxide 23 mmol/L (22-30); Chloride 105 mmol/L (98-107); Estimated CRCL calculation 48 ml/min; Estimated Glomerular Filt Rate > 60; Glucose 117 mg/dL (65-110); Magnesium 1.9 mg/dL (1.6-2.3); Potassium 3.9 mmol/L (3.4-5.0); Sodium 139 mmol/L (137-145); Total Protein 7.7 g/dL (6.3-8.2)
[2025-05-28 11:19] LABS: Thyroid Stimulating Hormone Reflex 2.210 uIU/mL (0.465-4.68)
== END 2025-05-28 13:36 | disposition home or self-care (01) ==
PROVIDERS: Emergency Provider Physician Assistant; PCP Family Medicine
DX: T86.828 Other complications of skin graft (allograft) (autograft) (principal); I48.91 Unspecified atrial fibrillation; C44.301 Unspecified malignant neoplasm of skin of nose; Z79.82 Long term (current) use of aspirin; Z79.01 Long term (current) use of anticoagulants; Z79.899 Other long term (current) drug therapy; Y83.2 Surgical operation with anastomosis, bypass or graft as the cause of abnormal reaction of the patient, or of later complication, without mention of misadventure at the time of the procedure
CPT/HCPCS: 36415; 71045; 80053; 81001; 83735; 84443; 85025; 85610; 85730; 93005; 96361; 96374; 99284; J1163; J7030

== ENCOUNTER 2025-06-23 11:00 | Emergency (ER) | payer MEDICARE, OTHER, SELFPAY ==
--- NOTE | ~2025-06-23 | XR_ITS ---
EXAMINATION: XR chest 2V DATE: 06/23/2025 12:57 INDICATION: Shortness of breath and weakness TECHNIQUE: PA and lateral views of the chest were obtained. COMPARISON: Chest radiograph dated 05/28/2025 FINDINGS: Minimal streaky atelectasis along the left lung base. No other airspace opacities, pulmonary edema, p leural effusion or pneumothorax. Heart size is normal with possible coronary artery stenting. Gas wit hin a moderate-sized hiatal hernia. Mild thoracic kyphosis and dextrocurvature with mild spondylosis and bridging osteophytes at multiple levels consistent with diffuse idiopathic skeletal hyperostosis (DISH). IMPRESSION: 1. Minimal left basilar atelectasis. 2. Moderate-sized hiatal hernia. Reviewed, dictated and finalized at location A.
[2025-06-23 11:03] VITALS: BP 105/72; PULSE 77; RESP 16; TEMP 36.4; O2SAT 97
--- NOTE | 2025-06-23 11:06 | ECG_ITS ---
Test Date: 2025-06-23 11:09:55 Measurements Intervals [place] Rate: 122 P: 0 WV: 0 QRS: 9 QRSD: 73 T: 56 QT: 307 QTc: 439 Interpretive Statements ATRIAL FFLUTTER/TACHYCARDIA WITH RAPID VENTRICULAR RESPONSE VENTRICULAR PREMATURE COMPLEX NONSPECIFIC ST & T-WAVE ABNORMALITY- ANTEROLAT/INF LEADS ABNORMAL ECG Compared to ECG 05/28/2025 10:24:48 HEART RATE HAS INCREASED Electronically Signed On 06-23-2025 11:15:56 CDT by Chuck Licona D.O.
--- OUTSIDE RECORDS SUMMARY | 2025-06-23 11:45 | XMS_ITS | Clinical Summary ---
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
--- OUTSIDE RECORDS SUMMARY | 2025-06-23 11:45 | XMS_ITS ---
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, bilateral legs I70.203 Assessments Encounter Date Diagnosis (ICD Code) Assessment Notes Treatment Notes Treatment Clinical Notes Section Notes 05/11/2025 Fungal infection of nail (ICD-10 - B35.1) 05/11/2025 Pain in right toe(s) (ICD-10 - M79.674) 05/11/2025 Pain in left toe(s) (ICD-10 - M79.675) 05/11/2025 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 [...] M79.675 4 . U nspecified atherosclerosis of telida arteries of extremities, bilateral legs - I70.203 Plan: * Treatment: * Immunizations: Immunization record has been reviewed and updated. * Procedure Codes: 1 1721 DEBRIDE NAIL, 6 OR MORE, Modifiers: Q8 * Preventive Medicine: Screenings: F all risk screening Fall Risk Assessment: N o falls in the past year * Follow Up: 9 weeks * Billing Information: * Visit Code: * Procedure Codes: 47059 DEBRIDE NAIL, 6 OR MORE. Modifiers: Q8 * Electronic signature of LAURE ORTIZ DPM on 06/23/2025 at 11:45 AM CDT Sign off status: Pending * Provider: Blaine Ortiz DPM Date: 0 05/11/2025 Generated for Evelina Leigh/Renzo on: 0 06/23/2025 11:45 AM CDT History and Physical Notes * [...]
--- OUTSIDE RECORDS SUMMARY | 2025-06-23 11:45 | XMS_ITS | Patient Health Record ---
Author Organization 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 ; Pain in right toe(s) M79.674 ; Pain in left toe(s) M79.675 and Unspecified atherosclerosis of comanche arteries of extremities, bilateral legs I70.203 [facility] [address] [id number] 07/13/2024 LAURE [place] 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 ; Pain in right toe(s) M79.674 ; Pain in left toe(s) M79.675 and Unspecified atherosclerosis of comanche arteries of extremities, bilateral legs I70.203 [facility] [address] [id number] 09/14/2024 LAURE [place] 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 ; Pain in right toe(s) M79.674 ; Pain in left toe(s) M79.675 and Unspecified atherosclerosis of comanche arteries of extremities, bilateral legs I70.203 [facility] [address] [id number] 12/08/2024 LAURE [place] 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203) 02/23/2025 Unspecified atherosclerosis of comanche arteries of extremities, bilateral legs (ICD-10 - I70.203) 12/08/2024 Unspecified atherosclerosis of comanche arteries of extremities, bilateral legs (ICD-10 - I70.203) 09/14/2024 Unspecified atherosclerosis of comanche arteries of extremities, bilateral legs (ICD-10 - I70.203) 07/13/2024 Unspecified atherosclerosis of comanche arteries of extremities, bilateral legs (ICD-10 - [...] [address], [place], [place], [id number], Insurance Providers Payer Name Payer Address Payer Phone Subscriber Number Group Number Insured Name Patient Relationship to Insured Coverage Start Date Coverage End Date Medicare Part B [facility] [address] [facility] [address] [id number] JARROD MATAMOROS Self - patient is the insured [facility] [address] [facility] [facility] [place] [id number] JARROD MATAMOROS Self - patient is the insured
--- OUTSIDE RECORDS SUMMARY | 2025-06-23 12:37 | XMS_ITS | Clinical Summary ---
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
--- OUTSIDE RECORDS SUMMARY | 2025-06-23 12:37 | XMS_ITS | Clinical Summary ---
Author Organization [facility] [place] [address] Address [address] [place] [address] Care Team Providers Care Interactive Video Technician Name Role Phone Paul Calvillo MD Primary Care Provider [phone] Allergies Active Allergy Reactions Criticality Noted Date [...] Paroxysmal atrial fibrillation 08/18/2019 Coronary arteriosclerosis in [place] artery 06/28 Overview (02/21/2017): CAD in [place] artery Presence of stent in coronary artery [...] History Relation Name Comments Other Father 2 PA at 43, at 75 afib; Relation Name [...] on file Legal Sex Female 2:51 AM [employer] Gender Identity Not on file Sexual Orientation [...] , 08/25/2019, 08/06/2018, Additional history exists Insurance ([address] MEDICARE [facility] Address: [address] [address] [place] [address] [facility] MEDICARE [facility] Address: [address] [address] [place] [address] [facility] Care Teams Interactive Video Technician Relationship Specialty Start Date End Date Paul Calvillo MD PCP - General Family Practice 09/05/23
[2025-06-23 12:45] VITALS: BP 107/54; PULSE 103; RESP 16; TEMP 36.6; O2SAT 100
[2025-06-23 13:01] LABS: Hematocrit 41.8 % (37.0-47.0); Hemoglobin 14.1 g/dL (12.0-15.0); Immature Granulocyte Percent A 0.2 % (0-0.5); Lymphocytes Absolute Auto 0.80 K/mm3 (0.9-3.2); Mean Corpuscular HGB Conc 33.7 g/dl (32-36); Mean Corpuscular Hemoglobin 31.5 pg (26-34); Mean Corpuscular Volume 93.5 fl (80-100); Nucleated Red Blood Cells Absolute Auto 0.000 K/mm3 (0.0-0.012); Nucleated Red Blood Cells Perc 0.0 % (0.0-0.2); Platelet Count Result 170 k/mm3 (150-375); Red Blood Count 4.47 M/mm3 (4.2-5.4); White Blood Count 5.1 K/mm3 (4.5-10.0)
[2025-06-23] MEDS: MECLIZINE HCL 12.5 MG TABLET PO (13:12)
[2025-06-23 13:13] VITALS: BP 104/55; BP 113/76; PULSE 103; PULSE 83
[2025-06-23 13:14] VITALS: BP 117/89; PULSE 105
[2025-06-23 13:20] LABS: Alanine Aminotransferase 21 U/L (6-35); Albumin Level 4.4 g/dL (3.5-5.1); Alkaline Phosphatase 89 U/L (38-126); Anion Gap 11 mmol/L (4-12); Aspartate Amino Transferase 44 U/L (14-36); Bilirubin,Total 0.4 mg/dL (0.2-1.3); Blood Urea Nitrogen 12 mg/dL (7-17); Calcium 9.7 mg/dL (8.4-10.2); Carbon Dioxide 27 mmol/L (22-30); Chloride 100 mmol/L (98-107); Estimated CRCL calculation 29 ml/min; Estimated Glomerular Filt Rate 57; Glucose 118 mg/dL (65-110); Potassium 4.0 mmol/L (3.4-5.0); Sodium 138 mmol/L (137-145); Total Protein 7.9 g/dL (6.3-8.2)
[2025-06-23 13:40] LABS: Influenza A QL RT-PCR Negative (Negative); Influenza B QL RT-PCR Negative (Negative); RSV RNA, RT-PCR Negative (Negative); SARS-CoV-2 RNA PCR Positive (Negative)
--- NOTE | 2025-06-23 14:42 | PC.NURSE ---
bladder scan done on patient revealed no urine in bladder. ZACK Antonio and EDP Willy aware of findings
--- NOTE | 2025-06-23 15:58 | ED.GENADULT ---
HPI - General Adult General Chief complaint: Dizziness Stated complaint: dizzy x 4 days Time Seen by Provider: 06/23/25 12:29 History of Present Illness HPI narrative: Patient is an 84-year-old female who presents ER with dizziness. Feels off balance when she stands up and tries to walk. She will get flushed and diaphoretic suspicious morning. No vomiting. No chest pain or chest pressure. Denies runny nose or sore throat. No fevers. No focal weakness in arm or leg. Related Data Home Medications ?Medication ?Instructions ?Recorded ?Confirmed ?Last Taken ?Type aspirin 81 mg tablet,delayed 81 mg PO DAILY 11/09/20 03/18/25 07/31/24 History release (Adult Aspirin Regimen) rivaroxaban 20 mg tablet (Xarelto) 20 mg PO QAM 11/09/20 03/18/25 06/21/24 History omega-3 fatty acids-fish oil 435 1 cap PO BID 09/20/22 03/18/25 07/31/24 History mg-880 mg capsule ferrous sulfate 325 mg (65 mg 325 mg PO DAILY 08/01/23 03/18/25 06/22/24 History iron) tablet plvvkbqw-asi-kacgj ac 400 1 tablet PO DAILY 08/01/23 03/18/25 07/31/24 History mcg-calcium carb 500 mg-vit K1 20 mcg tablet turmeric 400 mg capsule 400 mg PO DAILY 06/08/24 03/18/25 06/22/24 History acetaminophen 500 mg tablet 500 mg PO Q6H PRN 04/27/25 Unknown History (Tylenol Extra Strength) levothyroxine 50 mcg capsule 50 mcg PO DAILY 04/27/25 Unknown History Allergies Allergy/AdvReac Type Severity Reaction Status Date / Time lisinopril Allergy Severe ANGIOEDEMA Verified 06/23/25 11:06 Review of Systems Review of Systems: All systems reviewed & are unremarkable except as noted in HPI and below Constitutional: Constitutional: Reports no additional constitutional complaints ENT: Reports system reviewed and no additional complaints, except as documented Cardiovascular: Cardiovascular: Reports no additional cardiovascular complaints Respiratory: Respiratory: Reports no additional respiratory complaints Neurologic: Reports system reviewed and no additional complaints, except as documented PMFSH Past Medical History Medical History Mitral regurgitation Dyslipidemia Coronary artery disease Osteoporosis Atrial fibrillation Hyperlipidemia Adult hypothyroidism Essential (primary) hypertension Surgical History Surgical History H/O heart artery stent Stented coronary artery Family History Family History Mother Hypertension Hyperlipidemia Father Heart disease Sibling Alzheimer disease Social History Social History Smoking status: Never smoker Second hand tobacco smoke exposure: Yes Alcohol intake: never Substance use: never Substance use type: does not use Do You Feel Safe in your Home?: Yes Lack of Transportation: No Lack of Food: Never True Current Housing: I Have Housing Concerned About Future Housing: No Difficulty Paying Gas/Electric Bills: No Difficulty Paying for Meds: No Currently Unemployed: No Education: High School Diploma/GED Difficulty w/ Childcare or Family Care: No Living arrangements: with family Occupation/Education: retired Spiritual care concerns: No Exam Narrative: GENERAL: Well-appearing, well-nourished, and in no acute distress. HEAD: Normocephalic, atraumatic. Eyes: Perrl, EOMI. ENT: Mucous membranes moist. TMs normal bilaterally. CHEST: Clear to auscultation. No respiratory distress. HEART: Irregularly irregular rate and rhythm. Normal peripheral pulses. ABDOMEN: Soft, nontender, nondistended. EXTREMITIES: Normal range of motion. No edema. SKIN: Warm, dry, no rash. NEURO: Alert and oriented x3. PSYCH: Normal mood and affect. Course Course Emergency Course: Ambulatory without issue. Dizziness improved with meclizine. Discussed diagnosis and treatment plan. Patient verbalized understanding. Received IV fluid. She is not tachycardic. Vital Signs Vital signs: Vital Signs Temperature 97.5 F L 06/23/25 11:03 Pulse Rate 77 06/23/25 11:03 Respiratory Rate 16 06/23/25 11:03 Blood Pressure 105/72 06/23/25 11:03 Pulse Oximetry 97 06/23/25 11:03 Oxygen Delivery Room Air 06/23/25 11:03 Temperature 97.8 F 06/23/25 12:45 Pulse Rate 105 H 06/23/25 13:14 Respiratory Rate 16 06/23/25 12:45 Blood Pressure 117/89 06/23/25 13:14 Pulse Oximetry 100 06/23/25 12:45 Oxygen Delivery Room Air 06/23/25 12:45 Medical Decision Making Vital Signs Vital Signs: Vital Signs Temperature 97.5 F L 06/23/25 11:03 Pulse Rate 77 06/23/25 11:03 Respiratory Rate 16 06/23/25 11:03 Blood Pressure 105/72 06/23/25 11:03 Pulse Oximetry 97 06/23/25 11:03 Oxygen Delivery Room Air 06/23/25 11:03 Temperature 97.8 F 06/23/25 12:45 Pulse Rate 105 H 06/23/25 13:14 Respiratory Rate 16 06/23/25 12:45 Blood Pressure 117/89 06/23/25 13:14 Pulse Oximetry 100 06/23/25 12:45 Oxygen Delivery Room Air 06/23/25 12:45 Lab Data 06/23/25 12:44 06/23/25 12:44 Labs: Lab Results 06/23/25 Range/Units 12:44 WBC 5.1 (4.5-10.0) K/mm3 RBC 4.47 (4.2-5.4) M/mm3 Hgb 14.1 (12.0-15.0) g/dL Hct 41.8 (37.0-47.0) % MCV 93.5 (80-100) fl MCH 31.5 (26-34) pg MCHC 33.7 (32-36) g/dl RDW 12.3 (11.5-14.5) % Plt Count 170 (150-375) k/mm3 MPV 10.1 (7.4-10.4) fl Immature Gran % (Auto) 0.2 (0-0.5) % Neut % (Auto) 73.9 H (45.5-73.1) % Lymph % (Auto) 15.6 L (18.3-44.2) % Baldwin % (Auto) 9.7 H (2.6-8.5) % Eos % (Auto) 0.2 (0-4.4) % Baso % (Auto) 0.4 (0.2-1.2) % Lymph # (Auto) 0.80 L (0.9-3.2) K/mm3 Baldwin # (Auto) 0.5 (0.1-0.6) K/mm3 Eos # (Auto) 0.0 (0-0.3) K/mm3 Baso # (Auto) 0.0 (0.0-0.1) K/mm3 Abs Immat Gran (auto) 0.01 (0.00-0.031) K/mm3 Absolute Neuts (auto) 3.8 (1.3-6.7) K/mm3 Absolute Nucleated RBC 0.000 (0.0-0.012) K/mm3 Nucleated RBC % 0.0 (0.0-0.2) % Sodium 138 (137-145) mmol/L Potassium 4.0 (3.4-5.0) mmol/L Chloride 100 (98-107) mmol/L Carbon Dioxide 27 (22-30) mmol/L Anion Gap 11 (4-12) mmol/L BUN 12 (7-17) mg/dL Creatinine 0.94 (0.7-1.0) mg/dL Estim Creat Clear Calc 29 ml/min Estimated GFR 57 L (59 - ) Glucose 118 H (65-110) mg/dL Calcium 9.7 (8.4-10.2) mg/dL Total Bilirubin 0.4 (0.2-1.3) mg/dL AST 44 H (14-36) U/L ALT 21 (6-35) U/L Alkaline Phosphatase 89 (38-126) U/L Total Protein 7.9 (6.3-8.2) g/dL Albumin 4.4 (3.5-5.1) g/dL Influenza A (RT-PCR) Negative (Negative) Influenza B (RT-PCR) Negative (Negative) RSV (RT-PCR) Negative (Negative) SARS-CoV-2 RNA (RT-PCR) Positive A (Negative) Imaging Data Radiologist's impression: ITS Impressions Chest X-Ray 06/23/25 13:03 IMPRESSION: 1. Minimal left basilar atelectasis. 2. Moderate-sized hiatal hernia. Discharge Plan Discharge Clinical Impression: COVID, Dizziness Patient Disposition: Home Condition: Stable Instructions: Dizziness (ED), COVID-19 (Coronavirus Disease 2019) (ED) Additional Instructions: As discussed you have a viral illness. Unfortunately there are no specific medications we can give you to make the illness end faster. Antibiotics do not work for viral illnesses. However, you can take Acetaminophen or Ibuprofen to help with fevers and pain. Stay well hydrated and rested. Return to the emergency department if your fevers and chills continue to worse after 5 days, if you develop worsening cough with thick sputum, or are unable to stay hydrated. Contact your primary care provider in the next few days for a re-evaluation and to make sure your symptoms are improving. Patient Language: Bhutanese Prescriptions: New meclizine 12.5 mg tablet 12.5 mg PO TID PRN (Reason: dizziness) Qty: 10 0RF No Action levothyroxine 50 mcg tablet 50 mcg PO QPM Qty: 90 2RF hydrochlorothiazide 25 mg tablet 12.5 mg PO DAILY Qty: 90 1RF aspirin [Adult Aspirin Regimen] 81 mg tablet,delayed release (DR/EC) 81 mg PO DAILY Xarelto 20 mg tablet 20 mg PO QAM Rx Instructions: must administer with evening meal omega-3 fatty acids-fish oil 435-880 mg capsule 1 cap PO BID acetaminophen [Tylenol Extra Strength] 500 mg tablet 500 mg PO Q6H PRN levothyroxine 50 mcg capsule 50 mcg PO DAILY methylprednisolone [Medrol (Michael)] 4 mg tablets,dose pack See Rx Instructions PO PER PKG DIR Qty: 21 0RF Rx Instructions: PO PER PKG DIR for 6 days ferrous sulfate 325 mg (65 mg iron) Tablet 325 mg PO DAILY [id number] carb-K1 400 mcg-500 mg calcium-20 mcg Tablet 1 tablet PO DAILY cephalexin 500 mg capsule 500 mg PO Q8H 7 Days Qty: 21 0RF simvastatin 40 mg tablet 40 mg PO QPM Qty: 90 1RF esomeprazole magnesium 40 mg capsule,delayed release(DR/EC) See Rx Instructions .ROUTE .COMPLEX Qty: 90 1RF Dose Instruction: TAKE 1 CAPSULE BY MOUTH DAILY Rx Instructions: TAKE 1 CAPSULE BY MOUTH DAILY sotalol 80 mg tablet 80 mg PO DAILY Qty: 90 1RF alprazolam 0.5 mg tablet 0.5 mg PO BID Qty: 60 0RF turmeric 400 mg Capsule 400 mg PO DAILY Follow-up/Referrals: Paul Calvillo MD [Primary Care Provider] - 1 Week
[2025-06-23] MEDS: SODIUM CHLORIDE 0.9% IV 1,000 ML 999 ML IV CONT (16:11)
[2025-06-23 17:20] VITALS: BP 108/62; PULSE 87; RESP 16; TEMP 36.3; O2SAT 97
== END 2025-06-23 17:21 | disposition home or self-care (01) ==
PROVIDERS: Emergency Medicine; Emergency Provider Emergency Medicine; PCP Family Medicine
DX: U07.1 COVID-19 (principal); R42 Dizziness and giddiness; I34.0 Nonrheumatic mitral (valve) insufficiency; I25.10 Atherosclerotic heart disease of native coronary artery without angina pectoris; I48.91 Unspecified atrial fibrillation; I10 Essential (primary) hypertension; E78.5 Hyperlipidemia, unspecified; M81.0 Age-related osteoporosis without current pathological fracture; Z95.5 Presence of coronary angioplasty implant and graft; K44.9 Diaphragmatic hernia without obstruction or gangrene; Z79.82 Long term (current) use of aspirin; Z79.01 Long term (current) use of anticoagulants; Z79.899 Other long term (current) drug therapy; I48.92 Unspecified atrial flutter; R00.0 Tachycardia, unspecified; I49.3 Ventricular premature depolarization; R94.31 Abnormal electrocardiogram [ECG] [EKG]
CPT/HCPCS: 36415; 71046; 80053; 85025; 87637; 93005; 96360; 99283; A9270; J7030